=== PATIENT | female | born 1960 | race Caucasian/White ===

== ENCOUNTER 2020-10-04 06:58 | Outpatient (REF) | payer BC, SELFPAY ==
[2020-10-04 11:59] LABS: Alanine Aminotransferase 22 U/L (0-31); Albumin Level 3.9 g/dL (3.5-5.0); Alkaline Phosphatase 72 U/L (39-117); Anion Gap 12 (12-20); Aspartate Amino Transferase 15 U/L (5-31); Bilirubin Total 0.5 mg/dL (0.0-1.0); Blood Urea Nitrogen 18 mg/dL (9-16); Calcium 9.1 mg/dL (8.4-10.2); Carbon Dioxide 27 mmol/L (22-29); Chloride 106 mmol/L (96-108); Cholesterol 209 mg/dL; Estimated Glomerular Filt Rate > 60; Glucose Fasting 86 mg/dL (60-99); HDL Cholesterol 55 mg/dL; LDL Cholesterol Calculated 134 mg/dl; Potassium 4.2 mmol/L (3.3-5.1); Sodium 141 mmol/L (135-145); Triglycerides 103 mg/dL
[2020-10-04 12:05] LABS: Ferritin 56 ng/mL (10-250); TSH reflex Free T4 1.69 uIU/mL (0.32-4.0); Vitamin D 25-OH Total 32.1 ng/mL (>30)
== END 2020-10-04 06:59 | disposition home or self-care (01) ==
LOC: HO.HMGCLDS 06:58
PROVIDERS: PCP Nurse Practitioner Family; Visit Provider Nurse Practitioner Family
DX: Z00.00 Encounter for general adult medical examination without abnormal findings (principal); G25.81 Restless legs syndrome; Z78.0 Asymptomatic menopausal state
CPT/HCPCS: 36415; 80053; 80061; 82306; 82728; 84443

== ENCOUNTER → 2020-10-19 08:22 | Outpatient (BNVA) | payer BC, SELFPAY | PROVIDERS: PCP Nurse Practitioner Family; Visit Provider Obstetrics & Gynecology ==

== ENCOUNTER → 2020-10-28 11:07 | Outpatient (REF) | payer BC, SELFPAY | LOC: HO.NUCMED 11:07 | PROVIDERS: PCP Nurse Practitioner Family; Visit Provider Nurse Practitioner Family | DX: Z13.89 Encounter for screening for other disorder (principal) ==

== ENCOUNTER → 2020-10-29 07:47 | Outpatient (REF) | payer BC, SELFPAY ==
--- NOTE | ~2020-10-29 | NM_ITS ---
EXAMINATION: BILIARY TRACT IMAGING STUDY WITH CCK CLINICAL INFORMATION: Right upper quadrant pain.. COMPARISON: No previous biliary scan is available for comparison. Abdominal ultrasound dated 03/19/2017 is available for comparison.. TECHNIQUE: Serial gamma scintillation camera images were obtained over the abdomen for a total observation period of 94 minutes following the intravenous administration of 5.0 mCi Tc-99m Mebrofenin. FINDINGS: There is good concentration of activity in the liver by 5 minutes post injection. Biliary activity is visualized by 15 minutes. The gallbladder is well visualized by 50 minutes. Small bowel is well visualized by 20 minutes. At 72 minutes post radiopharmaceutical injection, a 30-minute infusion of 2.1 micrograms Sincalide was then begun and an additional 32 minutes of images were obtained. There is good emptying of the gallbladder. By the end of the study there is good clearance of activity from the liver and visualization of diffuse small bowel activity. The calculated gallbladder ejection fraction is 83% (normal gallbladder ejection fraction is greater than 35%). NM/NM hepatobiliary w pharm IMPRESSION: Visualization of the gallbladder is evidence of a patent cystic duct and strong evidence against the diagnosis of acute cholecystitis. The common bile duct is patent. Gallbladder emptying and ejection fraction are normal. Liver function appears normal.
== END ==
LOC: HO.NUCMED 07:47
PROVIDERS: Visit Provider Orthopaedic Surgery
DX: R10.11 Right upper quadrant pain (principal); R19.8 Other specified symptoms and signs involving the digestive system and abdomen
CPT/HCPCS: 78227; A9537; J2805

== ENCOUNTER 2021-01-03 09:24 | Outpatient (REF) | payer BC, SELFPAY | END 2021-01-03 09:25 | disposition home or self-care (01) | LOC: HO.LAB 09:24 | PROVIDERS: Visit Provider Nurse Practitioner Family | DX: J02.9 Acute pharyngitis, unspecified (principal); Z20.822 Contact with and (suspected) exposure to COVID-19 | CPT/HCPCS: U0003; U0005 ==

== ENCOUNTER 2021-01-21 11:26 | Outpatient (REF) | payer BC, SELFPAY ==
--- NOTE | ~2021-01-21 | MM_ITS ---
EXAMINATION: MM SCREENING DIGITAL BREAST TOMOSYNTHESIS, BILATERAL CLINICAL INFORMATION: Screening. Asymptomatic. The lifetime risk of breast cancer based on the Tyrer-Cuzick Model is 9%. COMPARISON: Mammography: 12/03/2019, 11/27/2018, 09/28/2017, 07/27/2016 TECHNIQUE: Digital breast tomosynthesis is performed in both the craniocaudal and mediolateral oblique views along with computer-aided detection (CAD). Synthesized 2D images are generated from the tomosynthesis. Additional left MLO view is provided. FINDINGS: There are scattered areas of fibroglandular density (ACR BI-RADS breast composition Category b). Parenchymal pattern is similar to prior studies. There is no developing density or interval mass or architectural abnormality. There is stable asymmetry mid medial left breast on CC view similar to prior exams. There are no abnormal calcifications. The axilla and skin contours are unremarkable. MM/MM tomosynthesis screening BI IMPRESSION: No mammographic evidence of malignancy. ASSESSMENT: BI-RADS 2: Benign RECOMMENDATION: Routine annual mammography screening. This patient's information was entered into a reminder system with a target due date for their next mammogram.
== END 2021-01-21 11:27 | disposition home or self-care (01) ==
LOC: HO.MAMMO 11:26
PROVIDERS: Visit Provider Nurse Practitioner Family
DX: Z12.31 Encounter for screening mammogram for malignant neoplasm of breast (principal)
CPT/HCPCS: 77063; 77067

== ENCOUNTER 2021-02-14 10:14 | Outpatient (REF) | payer BC, SELFPAY ==
[2021-02-21 14:21] LABS: TS Negative Control Passed; TS Panel A 0; TS Panel B 0; TS Positive Control Passed; TSpotTB Negative (SeeBelow)
== END 2021-02-14 10:15 | disposition home or self-care (01) ==
LOC: HO.HMGCLDS 10:14
PROVIDERS: PCP Nurse Practitioner Family; Visit Provider Nurse Practitioner Family
DX: Z11.1 Encounter for screening for respiratory tuberculosis (principal)
CPT/HCPCS: 36415; 86481

== ENCOUNTER 2021-05-09 07:59 | Outpatient (REF) | payer BC, SELFPAY ==
--- NOTE | ~2021-05-09 | XR_ITS ---
EXAMINATION: XR HIP, RIGHT CLINICAL INFORMATION: M25.551 - Pain in right hip COMPARISON: None TECHNIQUE: Two views of the right hip. FINDINGS: There is no fracture or dislocation. Borderline joint narrowing is present superior lateral right hip joint without erosive change or definite chondrocalcinosis. There is no destructive process. A benign oval calcification is present adjacent to the right greater trochanter measuring 0.5 x 1.1 cm most likely related to calcific tendinosis, possibly mammography piriformis insertion. There is mild benign whiskering at the iliac crest and mild osteitis pubis. Right SI joint shows no erosive change or ankylosis. There are degenerative changes lower lumbar spine. XR/XR hip RT min 2V IMPRESSION: 1. Degenerative changes lower lumbar spine. Osteitis pubis. 2. Mild joint narrowing superolateral hip joint. Calcific tendinosis adjacent to greater trochanter.
--- NOTE | ~2021-05-09 | XR_ITS ---
EXAMINATION: XR KNEE, LEFT CLINICAL INFORMATION: M25.562 - Pain in left knee COMPARISON: None TECHNIQUE: Four views of the left knee. FINDINGS: There is no fracture or dislocation. There is spurring at the quadriceps insertion patella and at the origin of the patellar tendon. Small suprapatellar effusion is suggested. There is mild degenerative marginal spurring. There is no significant joint narrowing and no erosive change or chondrocalcinosis. No fracture or dislocation or destructive process. Bony mineralization appears normal. XR/XR knee LT 4V IMPRESSION: 1. Small suprapatellar effusion. 2. Spurring quadriceps insertion patella and origin patellar tendon.
== END 2021-05-09 08:00 | disposition home or self-care (01) ==
LOC: HO.LAB 07:59
PROVIDERS: PCP Nurse Practitioner Family; Visit Provider Internal Medicine
DX: M25.551 Pain in right hip (principal); M25.562 Pain in left knee; Z20.822 Contact with and (suspected) exposure to COVID-19
CPT/HCPCS: 73502; 73564; C9803; U0003; U0005

== ENCOUNTER 2021-05-09 08:02 | Outpatient (REF) | payer BC, SELFPAY | END 2021-05-09 08:03 | disposition home or self-care (01) | LOC: HO.HMGCX 08:02 | PROVIDERS: PCP Nurse Practitioner Family; Visit Provider Nurse Practitioner Family | DX: Z13.89 Encounter for screening for other disorder (principal) ==

== ENCOUNTER 2021-05-19 08:48 | Outpatient (REF) | payer BC, SELFPAY ==
--- NOTE | ~2021-05-19 | MM_ITS ---
EXAMINATION: BONE DENSITOMETRY CLINICAL INDICATION: Other specified disorders of bone density and structure. COMPARISON: Baseline BD dated 03/13/2017. TECHNIQUE: Using a Ordoro DXA System (software version: 13.1) manufactured by [email or web address], dual-energy x-ray absorptiometry was performed of the lumbar spine and left hip. The images are of good technical quality. Summary results are attached. FINDINGS: AP SPINE L1-L4: Current: BMD 1.241 g/cm2, Z-score 0.9, T-score 0.5, normal, 5.8% decrease from baseline (<5% change is not significant). Baseline: BMD 1.317 g/cm2. LEFT FEMUR, NECK: Current: BMD 0.852 g/cm2, Z-score -0.7, T-score -1.3, osteopenia. Baseline: BMD 0.892 g/cm2. LEFT FEMUR, TOTAL: Current: BMD 0.956 g/cm2, Z-score -0.1, T-score -0.4, normal, 1.7% increase from baseline (<5% change is not significant). Baseline: BMD 0.940 g/cm2. IDENTIFIED RISK FACTORS: Anticonvulsant, menopause. HISTORY OF FRACTURE: None listed. MEDICATIONS: Calcium supplements or multivitamin, vitamin D. MM/XR DEXA axial skeleton IMPRESSION: 1. DIAGNOSIS: Osteopenia based on the lowest T-score value of -1.3 in the femoral neck applying World Health Organization criteria. 2. 10-YEAR FRACTURE RISK PREDICTION, FRAX: Major osteoporotic fracture (clinical spine, forearm, hip or shoulder) 7.7%. Hip fracture 0.6%. 3. Treatment Recommendations: NOF guidelines recommend consideration for treatment in postmenopausal women and men age 50 and older presenting with the following: -A hip or vertebral (clinical or morphometric) fracture. -T-score less than or equal to -2.5 at the femoral neck or spine after appropriate evaluation to exclude secondary causes. -Low bone mass at the hip or spine and a 10-year fracture probability by FRAX of greater than or equal to 3% for hip fracture or greater than or equal to 20% for major osteoporotic fracture based on the [place] adapted WHO algorithm. 4. Other Recommendations: All treatment decisions require clinical judgment and consideration of individual patient factors, including patient preferences, comorbidities, previous drug use, risk factors not captured in the FRAX model (e.g. frailty, falls, vitamin D deficiency, increased bone turnover, interval significant decline in bone density) and possible under or overestimation of fracture risk by FRAX. Additional medical evaluation for secondary cause of low bone mineral density may be appropriate. FUTURE SCAN RECOMMENDATION: People with diagnosed cases of osteoporosis or at high risk for fracture should have regular bone mineral density tests. For patients eligible for Medicare, routine testing is allowed once every 2 years. The testing frequency can be increased to one year for patients who have rapidly progressing disease, those who are receiving or discontinuing medical therapy to restore bone mass, or have additional risk factors.
== END 2021-05-19 08:49 | disposition home or self-care (01) ==
LOC: HO.MAMMO 08:48
PROVIDERS: PCP Nurse Practitioner Family; Visit Provider Nurse Practitioner Family
DX: Z13.820 Encounter for screening for osteoporosis (principal); M85.80 Other specified disorders of bone density and structure, unspecified site; Z78.0 Asymptomatic menopausal state; Z79.899 Other long term (current) drug therapy
CPT/HCPCS: 77080

== ENCOUNTER 2021-07-08 09:36 | Outpatient (REF) | payer BC, SELFPAY ==
--- NOTE | ~2021-07-08 | MR_ITS ---
EXAMINATION: MRI OF THE BRAIN WITHOUT CONTRAST. CLINICAL INFORMATION: 61-year-old with tremor. COMPARISON: None. TECHNIQUE: Multiplanar multisequence MR imaging of the brain was done without IV contrast. FINDINGS: Brain Volume: Within normal limits. Structural: No malformations. Brain and Meninges: DWI sequence demonstrates no restricted diffusion. Specifically, there is no evidence for acute or subacute cerebral ischemia. Scattered small patchy and punctate foci of FLAIR/T2 signal hyperintensity are noted within the subcortical and deeper white matter of both cerebral hemispheres which are nonspecific findings. There is no evidence for hemorrhage, hemosiderin staining or abnormal mineral deposition. No extra-axial fluid collections, space-occupying process or mass effect. Brainstem is normal in morphology with no significant volume loss. Ganglionic structures appear normal. Ventricles and Subarachnoid Spaces: Ventricular system and subarachnoid spaces are within normal limits without hydrocephalus. Orbital Structures: The visualized orbital structures are grossly unremarkable within the limitations of the study. Vascular: Signal voids are noted in the visualized major intracranial vessels. Sinuses and Osseous Structures: Nasal septal deviation to the right is noted. Suspect left-sided TMJ arthropathy. Otherwise, the bony structures appear grossly intact. MR/MR head/brain wo con IMPRESSION: 1. Scattered nonspecific white matter T2 hyperintensities in the cerebral hemispheres as described above. Differential diagnostic considerations include chronic ischemic microangiopathy as the main consideration. Other etiologies such as demyelination are considered less likely. 2. No evidence for hemorrhage, infarction, extra-axial fluid collection, space-occupying process, mass effect or hydrocephalus. 3. Suspect left-sided TMJ arthropathy.
== END 2021-07-08 09:37 | disposition home or self-care (01) ==
LOC: HO.MRI 09:36
PROVIDERS: Visit Provider Psychiatry & Neurology Neurology
DX: R25.1 Tremor, unspecified (principal)
CPT/HCPCS: 70551

== ENCOUNTER 2021-09-02 07:58 | Outpatient (REF) | payer BC, SELFPAY ==
[2021-09-02 09:15] LABS: Hematocrit 40.8 % (37.0-47.0); Hemoglobin 13.7 g/dl (12.0-16.0); Mean Corpuscular HGB Conc 33.6 g/dl (31.0-35.0); Mean Corpuscular Hemoglobin 32.5 pg (27.0-33.0); Mean Corpuscular Volume 96.9 fL (80.0-98.0); Mean Platelet Volume 10.2 fL (9.4-12.3); Platelet Count 233 X10*3/uL (160-400); Red Blood Count 4.21 X10*6/uL (4.20-5.50); Red Cell Distribution Width 14.3 % (11.0-16.0); White Blood Count 7.5 X10*3/uL (4.8-10.8)
[2021-09-02 09:38] LABS: Alanine Aminotransferase 29 U/L (0-31); Albumin Level 3.8 g/dL (3.5-5.0); Alkaline Phosphatase 67 U/L (39-117); Anion Gap 10 (12-20); Aspartate Amino Transferase 18 U/L (5-31); Bilirubin Direct 0.2 mg/dL (0.0-0.5); Bilirubin Total 0.5 mg/dL (0.0-1.0); Blood Urea Nitrogen 17 mg/dL (9-16); Calcium 9.6 mg/dL (8.4-10.2); Carbon Dioxide 28 mmol/L (22-29); Chloride 104 mmol/L (96-108); Estimated Glomerular Filt Rate > 60; Glucose Fasting 89 mg/dL (60-99); Potassium 4.1 mmol/L (3.3-5.1); Sodium 138 mmol/L (135-145); Total Protein 6.9 g/dL (6.5-8.0)
[2021-09-02 09:56] LABS: Syphilis Screen Nonreactive (Nonreactive)
[2021-09-02 10:07] LABS: Erythrocyte Sedimentation Rate 19 MM/HR (0-20)
[2021-09-03 13:27] LABS: Cardiolipin IgG Ab <2.0 GPL-U/mL; Cardiolipin IgM Ab <2.0 MPL-U/mL
[2021-09-04 05:26] LABS: Lyme Abs Screen <0.90 index
[2021-09-05 14:22] LABS: PTT (LAC) Screen 32 sec (< OR = 40)
[2021-09-06 07:36] LABS: Anti Nuclear Antibody Screen NEGATIVE (NEGATIVE)
== END 2021-09-02 07:59 | disposition home or self-care (01) ==
LOC: HO.HMGCLDS 07:58
PROVIDERS: PCP Nurse Practitioner Family; Visit Provider Psychiatry & Neurology Neurology
DX: G93.49 Other encephalopathy (principal)
CPT/HCPCS: 36415; 80048; 80076; 85027; 85597; 85613; 85652; 85730; 86038; 86039; 86147; 86617; 86618; 86780

== ENCOUNTER 2021-10-11 07:56 | Outpatient (REF) | payer BC, SELFPAY ==
[2021-10-11 11:33] LABS: Basophils Absolute Auto 0.1 X10*3/uL (0.0-0.2); Basophils Percent Auto 0.7 % (0-2); Eosinophils Absolute Auto 0.3 X10*3/uL (0.0-0.4); Eosinophils Percent Auto 3.6 % (0-4); Hematocrit 43.9 % (37.0-47.0); Hemoglobin 14.3 g/dl (12.0-16.0); Imm Gran Abs Auto 0.04 X10*3/uL (0.00-0.03); Imm Gran Pct Auto 0.6 % (0.0-0.4); Lymphocytes Absolute Auto 1.5 X10*3/uL (1.2-4.9); Lymphocytes Percent Auto 21.8 % (20-40); MANUAL DIFF FLAG NO; Mean Corpuscular HGB Conc 32.6 g/dl (31.0-35.0); Mean Corpuscular Hemoglobin 31.4 pg (27.0-33.0); Mean Corpuscular Volume 96.5 fL (80.0-98.0); Mean Platelet Volume 10.3 fL (9.4-12.3); Monocytes Absolute Auto 0.6 X10*3/uL (0.1-1.2); Monocytes Percent Auto 7.9 % (2-11); Neutrophils Absolute Auto 4.6 x10*3/uL (2.0-8.3); Neutrophils Percent Auto 65.4 % (45-73); Platelet Count 281 X10*3/uL (160-400); Red Blood Count 4.55 X10*6/uL (4.20-5.50); Red Cell Distribution Width 13.7 % (11.0-16.0)
[2021-10-11 11:35] LABS: Appearance Urine CLEAR; Color Urine YELLOW; Glucose Urine UA NEG (NEG); Leukocyte Esterase Urine TRACE (NEG); Nitrite Urine NEG (NEG); PH 5.5 (5.0-8.0); Specific Gravity - Urine 1.025 (1.005-1.025); Urine Blood NEG (NEG); Urine Ketones NEG (NEG); Urine Protein NEG (NEG-TRACE)
[2021-10-11 12:11] LABS: Alanine Aminotransferase 27 U/L (0-31); Albumin Level 3.8 g/dL (3.5-5.0); Alkaline Phosphatase 65 U/L (39-117); Anion Gap 14 (12-20); Aspartate Amino Transferase 21 U/L (5-31); Bilirubin Total 0.2 mg/dL (0.0-1.0); Blood Urea Nitrogen 18 mg/dL (9-16); Calcium 9.6 mg/dL (8.4-10.2); Carbon Dioxide 25 mmol/L (22-29); Chloride 105 mmol/L (96-108); Cholesterol 228 mg/dL; Estimated Glomerular Filt Rate 58; Glucose Fasting 90 mg/dL (60-99); HDL Cholesterol 59 mg/dL; LDL Cholesterol Calculated 153 mg/dl; Potassium 4.5 mmol/L (3.3-5.1); Sodium 139 mmol/L (135-145); Triglycerides 84 mg/dL
[2021-10-11 12:15] LABS: Squamous Epithelial Cell Urine 1+ /LPF
[2021-10-11 12:16] LABS: Bacteria Urine TRACE /LPF; Renal Epithelial Cells Urine TRACE /LPF
[2021-10-11 12:17] LABS: RBC Urine 0 /HPF (0)
[2021-10-11 12:25] LABS: Vitamin D 25-OH Total 34.3 ng/mL (>30)
== END 2021-10-11 07:57 | disposition home or self-care (01) ==
LOC: HO.HMGCLDS 07:56
PROVIDERS: PCP Nurse Practitioner Family; Visit Provider Nurse Practitioner Family
DX: Z00.00 Encounter for general adult medical examination without abnormal findings (principal); Z78.0 Asymptomatic menopausal state
CPT/HCPCS: 36415; 80053; 80061; 81001; 82306; 84443; 85025

== ENCOUNTER 2021-11-10 07:21 | Outpatient (REF) | payer BC, SELFPAY ==
--- NOTE | ~2021-11-10 | XR_ITS ---
EXAMINATION: XR KNEE AP STANDING CLINICAL INFORMATION: Pain COMPARISON: Previous left knee x-ray May 2021 TECHNIQUE: AP bilateral standing view of both knees and sunrise view of the left knee was obtained. FINDINGS: Left knee: Bone alignment is normal. The joint spaces are normal. Visualized soft tissues are normal. Standing AP view of the right knee demonstrates a small soft tissue calcification or well-corticated ossification adjacent to the fibular head. XR/XR knee LT 1V IMPRESSION: Unremarkable two-view left knee exam.
--- NOTE | ~2021-11-10 | XR_ITS ---
EXAMINATION: XR KNEE AP STANDING CLINICAL INFORMATION: Pain COMPARISON: Previous left knee x-ray May 2021 TECHNIQUE: AP bilateral standing view of both knees and sunrise view of the left knee was obtained. FINDINGS: Left knee: Bone alignment is normal. The joint spaces are normal. Visualized soft tissues are normal. Standing AP view of the right knee demonstrates a small soft tissue calcification or well-corticated ossification adjacent to the fibular head. XR/XR knee standing BI IMPRESSION: Unremarkable two-view left knee exam.
== END 2021-11-10 07:22 | disposition home or self-care (01) ==
LOC: HO.HOSX 07:21
PROVIDERS: Visit Provider Physician Assistant
DX: M25.562 Pain in left knee (principal); M25.561 Pain in right knee
CPT/HCPCS: 73560; 73565

== ENCOUNTER 2021-12-16 10:00 | Outpatient (RCR) | payer BC, SELFPAY ==
--- NOTE | 2021-11-03 15:16 | MHC.PT.EP ---
[facility] [place] Office [place] Office [place] Office [address] [phone] F: [phone] F: [phone] F: [phone] F: [phone] Physical Therapy Plan of Care Date of Evaluation: Date of Surgery: Diagnosis: L knee pain Assessment: Patient is a 61 year old R handed female who presents with s/s consistent with L knee pain. 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 Patient past medical history includes sleep apnea, osteopenia noted in L femoral neck. Current impairments include pain, posture, flexibility, ROM, strength, activity tolerance and functional mobility. Functional limitations include decreased ability to . Patient is motivated with good rehab potential. Skilled PT will address impairments and functional limitations in order to achieve goals. Frequency and Duration: The patient will be seen 2x/week for 5 weeks Short Term Goals: I with HEP- 2 weeks AROM 0-130 - 3 weeks HS and gastroc min tightness - 3 weeks Burglar Alarm Inspector Goals: Able to walk 30 minutes, negotiate 3 flights of stairs pain free - 5 weeks LEFS 58/80 - 5 weeks STrength 4+/5 grossly - 5 weeks Treatment Plan: Modalities to reduce pain, spasms and effusion. Manual therapy to restore motion and function. Therapeutic exercise to improve strength and flexibility. Neuromuscular re-education for posture and balance. Therapeutic activities to return to functional activities of daily living. Electronically signed by: Thom Ferreira, PT Please sign and return to therapist. Thank you for your referral.
--- NOTE | 2022-01-09 10:33 | MHC.PT.DC ---
[facility] [place] Office [place] Office [place] Office [address] Mendoza [address] [phone] F: [phone] F: [phone] F: [phone] F: [phone] Physical Therapy Discharge Report Diagnosis: L knee pain Date of Surgery: Date of Evaluation: 11/03/21 Date of Discharge: 12/20/21 Treatments to Date: 11 Cancellations to Date: No Shows to Date: Discharge Status: Improved Function Independent with HEP Discharge Summary: Pt progressed very well in towards goals. She has less pain, more strength and improved ability to perform functional activities. d/c to HEP at this time. Electronically signed by: Thom Ferreira PT Please sign and return to therapist. Thank you for your referral.
== END 2022-01-09 10:34 | disposition home or self-care (01) ==
LOC: HO.PTCHIC 10:00
PROVIDERS: PCP Nurse Practitioner Family; Visit Provider Nurse Practitioner Family
DX: M25.562 Pain in left knee (principal)
CPT/HCPCS: 97110; 97140; 97162; 97530

== ENCOUNTER 2021-12-22 08:44 | Outpatient (REF) | payer BC, SELFPAY ==
[2021-12-28 14:37] LABS: HPV mRNA E6/E7 rflx Not Detected (Not Detected)
== END 2021-12-22 08:45 | disposition home or self-care (01) ==
LOC: HO.LAB 08:44
PROVIDERS: Visit Provider Advanced Practice Midwife
DX: Z01.419 Encounter for gynecological examination (general) (routine) without abnormal findings (principal); Z11.51 Encounter for screening for human papillomavirus (HPV)
CPT/HCPCS: 87624; 88142

== ENCOUNTER 2021-12-26 13:13 | Outpatient (REF) | payer BC, SELFPAY ==
[2021-12-27 05:03] LABS: Lyme Abs Screen <0.90 index
[2021-12-30 01:56] LABS: A. Phagocytphilium DNA,RT-PCR NOT DETECTED (NOT DETECTED); Babesia Microti DNA, RT-PCR NOT DETECTED (NOT DETECTED); Borrelia Miyamotoi,DNA RT-PCR NOT DETECTED (NOT DETECTED); E.Chaffeensis DNA RT-PCR NOT DETECTED (NOT DETECTED); Lyme(Borrelia ssp)DNA RT-PCR NOT DETECTED (NOT DETECTED)
[2021-12-31 07:51] LABS: Source-Tick borne disease BLOOD
== END 2021-12-26 13:14 | disposition home or self-care (01) ==
LOC: HO.HMGCLDS 13:13
PROVIDERS: Visit Provider Physician Assistant
DX: L24.7 Irritant contact dermatitis due to plants, except food (principal)
CPT/HCPCS: 36415; 86617; 86618; 87798; 87801

== ENCOUNTER 2021-12-28 10:32 | Outpatient (REF) | payer BC, SELFPAY ==
[2021-12-28 13:37] LABS: Appearance Urine HAZY; Color Urine YELLOW; Glucose Urine UA NEG (NEG); Leukocyte Esterase Urine NEG (NEG); Nitrite Urine NEG (NEG); Urine Blood NEG (NEG); Urine Ketones NEG (NEG); Urine Protein NEG (NEG-TRACE)
[2021-12-28 13:53] LABS: Cholesterol 159 mg/dL; HDL Cholesterol 57 mg/dL; LDL Cholesterol Calculated 89 mg/dl; Triglycerides 65 mg/dL
== END 2021-12-28 10:33 | disposition home or self-care (01) ==
LOC: HO.HMGCLDS 10:32
PROVIDERS: PCP Nurse Practitioner Family; Visit Provider Nurse Practitioner Family
DX: Z00.00 Encounter for general adult medical examination without abnormal findings (principal); E78.5 Hyperlipidemia, unspecified
CPT/HCPCS: 36415; 80061; 81003

== ENCOUNTER 2022-01-24 08:53 | Outpatient (REF) | payer BC, SELFPAY ==
--- NOTE | ~2022-01-24 | MM_ITS ---
EXAMINATION: MM SCREENING DIGITAL BREAST TOMOSYNTHESIS, BILATERAL CLINICAL INFORMATION: Screening. Asymptomatic. The lifetime risk of breast cancer based on the Tyrer-Cuzick Model is 8%. COMPARISON: Mammography: January 21, 2021 and studies dating back to February 23, 2012 TECHNIQUE: Digital breast tomosynthesis is performed in both the craniocaudal and mediolateral oblique views along with computer-aided detection (CAD). Synthesized 2D images are generated from the tomosynthesis. FINDINGS: There are scattered areas of fibroglandular density (ACR BI-RADS breast composition Category b). There are no significant masses, abnormal calcifications, or other abnormalities. MM/MM tomosynthesis screening BI IMPRESSION: No significant changes ASSESSMENT: BI-RADS 1: Negative RECOMMENDATION: Routine annual mammography screening. This patient's information was entered into a reminder system with a target due date for their next mammogram.
== END 2022-01-24 08:54 | disposition home or self-care (01) ==
LOC: HO.MAMMO 08:53
PROVIDERS: Visit Provider Nurse Practitioner Family
DX: Z12.31 Encounter for screening mammogram for malignant neoplasm of breast (principal)
CPT/HCPCS: 77063; 77067

== ENCOUNTER 2022-04-24 08:31 | Outpatient (REF) | payer BC, SELFPAY ==
[2022-04-24 12:20] LABS: Alanine Aminotransferase 24 U/L (0-31); Albumin Level 3.9 g/dL (3.5-5.0); Alkaline Phosphatase 67 U/L (39-117); Anion Gap 11 (12-20); Aspartate Amino Transferase 19 U/L (5-31); Bilirubin Total 0.5 mg/dL (0.0-1.0); Blood Urea Nitrogen 13 mg/dL (9-16); Calcium 9.6 mg/dL (8.4-10.2); Carbon Dioxide 28 mmol/L (22-29); Chloride 105 mmol/L (96-108); Cholesterol 155 mg/dL; Estimated Glomerular Filt Rate > 60; Glucose Fasting 93 mg/dL (60-99); HDL Cholesterol 53 mg/dL; LDL Cholesterol Calculated 86 mg/dl; Potassium 4.1 mmol/L (3.3-5.1); Sodium 140 mmol/L (135-145); Total Protein 7.1 g/dL (6.5-8.0); Triglycerides 82 mg/dL
== END 2022-04-24 08:32 | disposition home or self-care (01) ==
LOC: HO.HMGCLDS 08:31
PROVIDERS: PCP Nurse Practitioner Family; Visit Provider Nurse Practitioner Family
DX: E78.5 Hyperlipidemia, unspecified (principal)
CPT/HCPCS: 36415; 80053; 80061

== ENCOUNTER 2022-06-01 13:53 | Outpatient (REF) | payer BC, SELFPAY ==
[2022-06-01 14:44] LABS: Influenza A PCR NEGATIVE (Negative); Influenza B PCR NEGATIVE (Negative); Resp Syncy Virus RNA Qual PCR NEGATIVE (Negative); SARS COV2 PCR INHOUSE NEGATIVE (Negative)
== END 2022-06-01 13:54 | disposition home or self-care (01) ==
LOC: HO.LNP 13:53
PROVIDERS: Visit Provider Nurse Practitioner Family
DX: Z20.822 Contact with and (suspected) exposure to COVID-19 (principal); R09.89 Other specified symptoms and signs involving the circulatory and respiratory systems
CPT/HCPCS: 0241U

== ENCOUNTER 2022-10-17 08:19 | Outpatient (REF) | payer BC, SELFPAY ==
[2022-10-17 11:12] LABS: MANUAL DIFF FLAG NO
[2022-10-17 11:25] LABS: Appearance Urine Clear; Color Urine Yellow; Glucose Urine UA Negative (Negative); Leukocyte Esterase Urine Small (1+) (Negative); Nitrite Urine Negative (Negative); Specific Gravity - Urine 1.015 (1.005-1.025); UMIC TRIGGER UACC YES; Urine Blood Negative (Negative); Urine Ketones Negative (Negative); Urine Protein Negative (Neg-Trace)
[2022-10-17 11:41] LABS: Basophils Absolute Auto 0.1 X10*3/uL (0.0-0.2); Basophils Percent Auto 1.1 % (0-2); Eosinophils Absolute Auto 0.3 X10*3/uL (0.0-0.4); Eosinophils Percent Auto 3.8 % (0-4); Hematocrit 43.3 % (37.0-47.0); Imm Gran Abs Auto 0.02 X10*3/uL (0.00-0.03); Imm Gran Pct Auto 0.3 % (0.0-0.4); Lymphocytes Absolute Auto 1.8 X10*3/uL (1.2-4.9); Lymphocytes Percent Auto 24.2 % (20-40); Mean Corpuscular HGB Conc 32.3 g/dl (31.0-35.0); Mean Corpuscular Hemoglobin 30.4 pg (27.0-33.0); Mean Corpuscular Volume 94.1 fL (80.0-98.0); Mean Platelet Volume 10.6 fL (9.4-12.3); Monocytes Absolute Auto 0.7 X10*3/uL (0.1-1.2); Monocytes Percent Auto 9.1 % (2-11); Neutrophils Absolute Auto 4.5 x10*3/uL (2.0-8.3); Neutrophils Percent Auto 61.5 % (45-73); Platelet Count 258 X10*3/uL (160-400); Red Cell Distribution Width 14.5 % (11.0-16.0); White Blood Count 7.3 X10*3/uL (4.8-10.8)
[2022-10-17 11:44] LABS: Bacteria Urine None Seen (None Seen); Hyaline Casts Urine 0-2 /LPF (0-2); RBC Urine 0-2 /HPF (0-2); UACC Culture Trigger YES; WBC Urine 0-5 /HPF (0-5)
[2022-10-17 12:10] LABS: Alanine Aminotransferase 30 U/L (0-31); Albumin Level 3.8 g/dL (3.5-5.0); Alkaline Phosphatase 70 U/L (39-117); Anion Gap 12 (12-20); Aspartate Amino Transferase 23 U/L (5-31); Bilirubin Total 0.7 mg/dL (0.0-1.0); Blood Urea Nitrogen 16 mg/dL (9-16); Calcium 9.2 mg/dL (8.4-10.2); Carbon Dioxide 27 mmol/L (22-29); Chloride 105 mmol/L (96-108); Cholesterol 152 mg/dL; Estimated Glomerular Filt Rate > 60; Glucose Fasting 89 mg/dL (60-99); HDL Cholesterol 58 mg/dL; LDL Cholesterol Calculated 77 mg/dl; Potassium 4.2 mmol/L (3.3-5.1); Sodium 140 mmol/L (135-145); TSH reflex Free T4 2.81 uIU/mL (0.32-4.0); Total Protein 6.7 g/dL (6.5-8.0); Triglycerides 89 mg/dL; Vitamin D 25-OH Total 34.7 ng/mL (>30)
== END 2022-10-17 08:20 | disposition home or self-care (01) ==
LOC: HO.HMGCLDS 08:19
PROVIDERS: PCP Nurse Practitioner Family; Visit Provider Nurse Practitioner Family
DX: Z00.00 Encounter for general adult medical examination without abnormal findings (principal); E55.9 Vitamin D deficiency, unspecified; R82.90 Unspecified abnormal findings in urine; E78.5 Hyperlipidemia, unspecified; G25.81 Restless legs syndrome
CPT/HCPCS: 36415; 80053; 80061; 81001; 82306; 84443; 85025; 87086; 87147

== ENCOUNTER 2022-12-28 08:54 | Outpatient (AMB) | payer BC, SELFPAY ==
--- NOTE | 2022-12-28 08:58 | A.OFFVIS_ITS ---
Intake Vital Signs 12/28/22 09:02 Height 5 ft 8 in Weight 213 lb BMI 32.4 BP 134/72 Blood Pressure Location Lt brachial Position Sitting Pulse 74 Intake Visit Reasons: Dysphagia Intake Note: Patient new consult for dysphagia. Patient cc: dysphagia, hemorrhoids with constipation. Denies any other GI issues. Dairy Equipment Specialist Required: No Accompanied by: Self / Same As Patient Allergies neomycin Allergy (Unknown, Verified 12/28/22 08:56) Unknown Nickel Allergy (Unknown, Uncoded 10/25/22 08:30) rash, itching Medication List - Last Reconciled 12/28/22 by Lisa aMce PA-C atorvastatin 10 mg PO BEDTIME 90 days diltiazem HCl ER (DILT-XR) 120 mg PO DAILY fluoxetine 40 mg PO QAM gabapentin mg PO BEDTIME lamotrigine 100 mg PO BID omeprazole 40 mg PO DAILY 90 days trazodone 50 mg PO BEDTIME HPI HPI Comments History of Present Illness Details 62-year-old female referred with dysphagia- globus- She has noted pills don't pass easily- she had a hx of severe acid- had cardiac eval- was no finding- began omeprazole 20mgnow increased to omeprazole 40 mg- Recent ED for pressure- she had NSVT- PVC's referred back to cardiology- seeing them in end January- after holter monitor- P- and M side colon cancer- Last colonoscopy- 2018- Dr. Davies- no adenoma- Appetite is good- Bowels- a bit slow- no blood no belly pain- fever/chills PFSH Medical History (Updated 12/28/22 @ 09:55 by Lisa Mace PA-C) Anxiety Depression Lyme disease FERNANDO (obstructive sleep apnea) Plantar fasciitis Vitamin D deficiency Surgical History History of suburethral sling procedure Hx of appendectomy Hx of colonoscopy Family History (Updated 12/28/22 @ 09:34 by Lisa Mace PA-C) Maternal Aunt Colon cancer Paternal Grandfather Colon cancer Family/Other Colon cancer Brother Substance use disorder Mental health disorder Sister Mental health disorder Mother Mental health disorder History of Almeida's esophagus Social History Housing: House Alcohol intake: current Patient Tobacco Use Status: Former Tobacco user Years Smoked: 1 year e-Cigarette/Vaping Use: Never Used Second Hand Smoke Exposure: Yes Current occupational status: unemployed and retired Gender identity: Female Cognitive needs: No Hearing needs: No Vision needs: No Female Reproductive History Menstrual Age of Menarche: 14 Review of Systems Const All systems reviewed & are unremarkable except as noted in HPI and below ENT Reports dysphagia Card Denies chest pain and Denies dyspnea Resp Denies dyspnea GI Denies abdominal pain, Reports constipation and Reports dysphagia Psych Reports anxiety, Reports depression, Denies homicidal ideation and Denies suicidal ideation Physical Exam Vital Signs: Last Vital Signs Pulse 74 12/28/22 09:02 BP 134/72 12/28/22 09:02 BMI result Body Mass Index 32.4 Const General: cooperative, healthy appearing, comfortable and no acute distress Orientation/consciousness: patient oriented x3 Limitations: no limitations Eyes Sclerae: sclerae normal Resp Effort & Inspection: normal respiratory effort and able to speak in complete sentences Auscultation: clear to auscultation bilaterally Neuro General: patient oriented x3 Extrem General: Yes full ROM Psych Appearance: grossly normal and well kempt Mental Status: mental status grossly normal Speech and movement: Normal speech and movement present and Clear speech present Affect: normal affect and Anxious affect present Attitude: cooperative Thought process: Normal thought process present Thought content: Normal thought content present Insight: Good insight present (Psych) Judgement: Good judgement present (Psych) Assessment & Plan Assessment & Plan (1) Dysphagia: Comment: Very pleasant 62-year-old female- Dysphagia/ globus/ anxiety- cardiac work up - follow recommend EGD, however will get Barium until cardiac cleared- Code(s): R13.10 - Dysphagia, unspecified (2) Chronic constipation: Comment: Colonoscopy 2019- no adenoma repeat 5 years due to Fam HX- per Dr. Cash- Code(s): K59.09 - Other constipation Plan: Increase fiber-you supplements if need (3) Acid reflux: Code(s): K21.9 - Gastro-esophageal reflux disease without esophagitis Plan: Reflux precautions, avoid culprits Continue PPI Plan Barium swallow Orders: Orders FL barium swallow Today R13.10 - Dysphagia, unspecified Patient Instructions: Very pleasant 62-year-old female presents with history acid reflux, family history of Almeida's as well as globus/dysphagia-will hold off on EGD until cardiac workup completed unless otherwise indicated Will get barium swallow to assess for stricture, esophagitis, ETC Chew well eat slowly continue ppi reflux precautions HFD F/U cardiology Follow-up after barium swallow Call with any questions or concerns Coding Level of Care Code New Pt Level 4 (12071) Diagnoses Dysphagia R13.10 Chronic constipation K59.09 Acid reflux K21.9 Time Spent (min) 40
[2022-12-28 09:02] VITALS: BP 134/72; PULSE 74; BMI 32.4
== END 2022-12-28 09:46 | disposition home or self-care (01) ==
PROVIDERS: PCP Nurse Practitioner Family; Visit Provider Physician Assistant
DX: R13.10 Dysphagia, unspecified (principal); K59.09 Other constipation; K21.9 Gastro-esophageal reflux disease without esophagitis
CPT/HCPCS: 99203; 99204; 99213

== ENCOUNTER → 2022-12-28 08:54 | Outpatient (BNVA) | payer BC, SELFPAY | PROVIDERS: PCP Nurse Practitioner Family; Visit Provider Physician Assistant ==

== ENCOUNTER 2023-01-30 09:36 | Outpatient (REF) | payer BC, SELFPAY | END 2023-01-30 09:37 | disposition home or self-care (01) | LOC: HO.MAMMO 09:36 | PROVIDERS: PCP Nurse Practitioner Family; Visit Provider Nurse Practitioner Family | DX: Z12.31 Encounter for screening mammogram for malignant neoplasm of breast (principal) | CPT/HCPCS: 77063; 77067 ==

== ENCOUNTER → 2023-01-30 09:45 | Outpatient (BNV) | payer BC, SELFPAY | PROVIDERS: PCP Nurse Practitioner Family; Visit Provider Radiology Diagnostic Radiology | DX: Z12.31 Encounter for screening mammogram for malignant neoplasm of breast (principal) | CPT/HCPCS: 77063; 77067 ==

== ENCOUNTER 2023-02-06 08:36 | Outpatient (REF) | payer BC, SELFPAY ==
--- NOTE | ~2023-02-06 | FL_ITS ---
EXAMINATION: XR FLUOROSCOPY BARIUM SWALLOW WITH AIR CLINICAL INFORMATION: Heartburn, dysphagia unspecified. COMPARISON: None TECHNIQUE: Fluoroscopic air contrast barium swallow examination was performed utilizing standard techniques with thin and thick barium and effervescent granules. Numerous spot images were obtained. FINDINGS: Lateral cine images of the oropharynx and hypopharynx demonstrate normal swallow mechanism with normal epiglottic inversion and soft palate elevation. No tracheal penetration, glottic or subglottic aspiration identified. No nasopharyngeal reflux present. Hypopharyngeal structures appear normal without evidence of mass or diverticulum. There was no significant cricopharyngeal achalasia. Dual and single contrast images of the esophagus demonstrate normal caliber, contour, and mucosal pattern. No evidence of stricture, mass, or ulcerations identified. Esophageal peristalsis was normal. There was a small type I hiatus hernia at the GE junction. There was significant gastroesophageal reflux noted during the examination to the level of the thoracic inlet. Dual contrast and single contrast images of the stomach demonstrated normal contour and mucosal pattern without evidence of mass, ulceration, or other abnormality. Contrast freely passed into the gastric antrum and duodenal bulb without delay. Single and air-contrast images of the duodenal bulb demonstrate no abnormality. The duodenal sweep has a normal appearance, course, and mucosal fold appearance. The imaged proximal jejunum has a normal fold pattern and caliber. FLUOROSCOPY TIME: 4.0 minutes Number of Spot Images: 47 DOSE AREA PRODUCT: 39.938 uGy-m2 (microgray-meter squared) FL/FL barium swallow with air IMPRESSION: 1. Small type I hiatus hernia. 2. Episodic gastroesophageal reflux noted to the level of the thoracic inlet. 3. Examination otherwise normal.
== END 2023-02-06 08:37 | disposition home or self-care (01) ==
LOC: HO.XRAY 08:36
PROVIDERS: PCP Nurse Practitioner Family; Visit Provider Physician Assistant
DX: R13.10 Dysphagia, unspecified (principal)
CPT/HCPCS: 74221

== ENCOUNTER → 2023-02-06 08:40 | Outpatient (BNV) | payer BC, SELFPAY | PROVIDERS: PCP Nurse Practitioner Family; Visit Provider Radiology Diagnostic Radiology | DX: K21.9 Gastro-esophageal reflux disease without esophagitis (principal); R13.10 Dysphagia, unspecified | CPT/HCPCS: 74221 ==

== ENCOUNTER 2023-02-16 13:50 | Outpatient (AMB) | payer BC, SELFPAY ==
--- NOTE | 2023-02-16 13:52 | MHC.OFFVIS ---
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 Scribed for HAILEY Alegria by Anne Francois medical transcriptionist, on 02/16/2023 at 2:15 pm EST Grain Packer Required: No Information Interpreted: non-clinical & clinical Securities Sales Associate: Securities Sales Associate Present (Dyan Wild GREGORY) Accompanied by: Self / Same As Patient Allergies neomycin Allergy (Unknown, Verified 02/16/23 13:58) Unknown Nickel Allergy (Unknown, Uncoded 02/16/23 13:58) rash, itching Post menopausal: Yes HPI HPI Comments History of Present Illness Details She is a postmenopausal woman presenting for annual exam. Doing well with no director of critical care concerns. She attempts to eat a healthy diet including Calcium and Vitamin D. She tries to stay active with walking occasionally. Occasionally sexually active. Admits to vaginal dryness when intimate. Denies vaginal itching and irritation. STD screening offered; she accepts. Last pap smear 2021. Last mammogram 01/30/23. UTD on colonoscopy. Hx of PVC, was seen at ED 2x, all tests normal. Has seen cardiology, sx have since resolved. Hx of GERD, being followed by GI. [facility] Medical History Plantar fasciitis FERNANDO (obstructive sleep apnea) Vitamin D deficiency Lyme disease Depression Anxiety Surgical History Hx of colonoscopy Hx of appendectomy History of suburethral sling procedure Family History Maternal Aunt Colon cancer Paternal Grandfather Colon cancer Family/Other Colon cancer Brother Substance use disorder Mental health disorder HTN (hypertension) Sister Mental health disorder Mother Mental health disorder History of Almeida's esophagus Father Heart attack CHF (congestive heart failure) Social History Household Members: Spouse Housing: House Alcohol intake: current Patient Tobacco Use Status: Current everyday Tobacco user Cigarettes Per Day: 5 Years Smoked: 1 year e-Cigarette/Vaping Use: Never Used Second Hand Smoke Exposure: Yes Current occupational status: unemployed and retired Sexual orientation: Straight/Heterosexual Gender identity: Female Cognitive needs: No Hearing needs: No Vision needs: No Female Reproductive History Menstrual Age of Menarche: 14 Total pregnancies: 0 Date of last pap smear: 12/23/21 Date of Mammogram: 01/30/23 Review of Systems Const All systems reviewed & are unremarkable except as noted in HPI and below Reports vaginal dryness Physical Exam Vital Signs: Last Vital Signs BP 120/72 02/16/23 13:53 BMI result Body Mass Index 32.4 Const General: cooperative, healthy appearing, no acute distress, well developed and alert Orientation/consciousness: patient oriented x3 HEENT Head: Yes normal to inspection Eyes General: appearance normal, both eyes and all related structures Neck Neck: Yes normal visual inspection Thyroid: Thyroid normal Chest Chest palpation & inspection: normal inspection of the chest Breast/axilla inspection: normal inspection of the breasts (no puckering, dimpling, peau de orange, retraction, discharge, masses) Breast/axilla palpation: normal palpation of the breasts Resp Effort & Inspection: normal respiratory effort GI Inspection: Yes normal to inspection and Yes obesity Palpation (GI): Soft to palpation Rectal Exam - Female: deferred General: Yes bladder normal to palpation External Female Exam: normal external appearance and normal appearance of the urethra Speculum Exam - Vagina: normal appearance of the vagina, normal palpation, normal vaginal discharge and vagina atrophic Speculum Exam - Cervix: normal appearance of the cervix and normal palpation Bimanual exam- vagina & uterus: normal bimanual exam, normal palpation, uterine size normal, bladder normal to palpation and normal palpation Bimanual Exam- Adnexa, other: normal adnexae and no masses Skin General skin exam: no rashes or lesions noted Neuro General: patient oriented x3 Cognition (Neuro): normal cognition Extrem General: Yes normal to inspection Psych Attitude: cooperative Thought process: Normal thought process present Assessment & Plan Assessment & Plan (1) Encounter for annual routine gynecological examination: Code(s): Z01.419 - Encounter for gynecological examination (general) (routine) without abnormal findings Plan: Discussed: Current recommendations for pap smears per ASCCP guidelines. Breast awareness and periodic self breast exams. Encouraged yearly mammograms. Maintaining a healthy lifestyle including a well balanced diet including Calcium and Vitamin D and routine exercise. Contact office with any PMB. All of her questions and concerns were addressed to the best of my ability. RTO in one year for AG. (2) Vaginal dryness, menopausal: Code(s): N95.1 - Menopausal and female climacteric states Plan: Recommended using Replens for moisturizing and lubricants such as Replens, Astroglide, K-Y jelly or Coconut oil for intimacy. (3) Tobacco use: Code(s): Z72.0 - Tobacco use Plan: Encouraged cessation. She is not interested at this time. Coding Level of Care Code Est Pt Prev Care 40-64y(09603) Diagnoses Encounter for annual routine gynecological examination Z01.419 Vaginal dryness, menopausal N95.1 Tobacco use Z72.0
[2023-02-16 13:53] VITALS: BP 120/72; BMI 32.4
== END 2023-02-16 14:30 | disposition home or self-care (01) ==
PROVIDERS: PCP Nurse Practitioner Family; Visit Provider Advanced Practice Midwife
DX: Z01.419 Encounter for gynecological examination (general) (routine) without abnormal findings (principal); N95.1 Menopausal and female climacteric states; Z72.0 Tobacco use
CPT/HCPCS: 99396

== ENCOUNTER → 2023-02-16 13:50 | Outpatient (BNVA) | payer BC, SELFPAY | PROVIDERS: PCP Nurse Practitioner Family; Visit Provider Advanced Practice Midwife ==

== ENCOUNTER 2023-03-09 14:03 | Outpatient (AMB) | payer BC, SELFPAY ==
--- NOTE | 2023-03-09 14:52 | MHC.OFFWIV ---
Intake Vital Signs 03/09/23 14:54 Height 5 ft 8 in Weight 216 lb BMI 32.8 BP 100/58 L Blood Pressure Location Rt brachial Position Sitting Pulse 72 Pulse Source Pulse Oximeter Pulse Oximetry (%) 97 Oxygen Delivery Method Room Air Intake Visit Reasons: EP, Right upper thigh tic bite Intake Note: Patient here for tic bite on inner right thigh, she states she did pull it out but is unsure if she took got the head out. she states it is red/bruising around the bite. Patient Tobacco Use Status: Current everyday Tobacco user Allergies neomycin Allergy (Unknown, Verified 03/09/23 14:57) Unknown Nickel Allergy (Unknown, Uncoded 03/09/23 14:57) rash, itching Do you need a note to return to daycare/school/sports/work: No HPI HPI Comments History of Present Illness Details This is a 62-year-old female who presents to the office today for a tick bite. Patient states she noticed a tick on the medial aspect of her right thigh and she removed the tick 2 days ago. She is not sure how long the tick was embedded but states that the tick was not engorged at that time and she does not believe the tick was embedded for > 36 hours. She denies any fever/chills, headaches, myalgias / arthralgias, abdominal pain, nausea /vomiting /diarrhea, or fatigue. Patient states she has a history of Lyme disease and has been treated in the past. [facility] Medical History Plantar fasciitis FERNANDO (obstructive sleep apnea) Vitamin D deficiency Lyme disease Depression Anxiety Surgical History Hx of colonoscopy Hx of appendectomy History of suburethral sling procedure Family History Maternal Aunt Colon cancer Paternal Grandfather Colon cancer Family/Other Colon cancer Brother Substance use disorder Mental health disorder HTN (hypertension) Sister Mental health disorder Mother Mental health disorder History of Almeida's esophagus Father Heart attack CHF (congestive heart failure) Social History Household Members: Spouse Housing: House Alcohol intake: current Patient Tobacco Use Status: Current everyday Tobacco user Cigarettes Per Day: 5 Years Smoked: 1 year e-Cigarette/Vaping Use: Never Used Second Hand Smoke Exposure: Yes Current occupational status: unemployed and retired Sexual orientation: Straight/Heterosexual Gender identity: Female Cognitive needs: No Hearing needs: No Vision needs: No Female Reproductive History Menstrual Age of Menarche: 14 Review of Systems Const All systems reviewed & are unremarkable except as noted in HPI and below Reports no additional complaints Eyes Reports no additional complaints ENT Reports no additional complaints Card Reports no additional complaints Resp Reports no additional complaints GI Reports no additional complaints Reports no additional complaints Musc Reports no additional complaints Skin/Breast Reports system reviewed and no additional complaints, except as documented Neuro Reports no additional complaints Psych Reports no additional complaints Endo Reports no additional complaints Demond/Lymph Reports no additional complaints Aller/Immun Reports no additional complaints Physical Exam Vital Signs: Last Vital Signs Pulse 72 03/09/23 14:54 BP 100/58 L 03/09/23 14:54 Pulse Ox 97 03/09/23 14:54 Oxygen Delivery Method Room Air 03/09/23 14:54 BMI result Body Mass Index 32.8 Const Other: Vital signs reviewed. Constitutional: Non-toxic appearing. No acute distress. Well-developed and well-nourished. HEENT: Normocephalic and atraumatic. Skin: Warm and dry. there is a small scab on her right medial thigh with surrounding erythema and then surrounding ecchymosis. There is no evidence of fluctuance or induration and there is no lymphangitic streaking. Neck: Full and painless range of motion. No cervical lymphadenopathy. Cardio: Regular rate. No lower extremity edema. No JVD. Pulmonary: No respiratory distress. No accessory muscle usage. Gastrointestinal: Soft, nontender, and nondistended in all 4 quadrants. Musculoskeletal: Normal range of motion in joints throughout the body. No deformity or other signs of injury. Neuro: Alert and oriented x4. Cranial nerves 2-12 grossly intact. No focal deficits appreciated. Psych: Normal mood and affect. Assessment & Plan Assessment & Plan (1) Insect bite: Code(s): W57.XXXA - Bitten or stung by nonvenomous insect and other nonvenomous arthropods, initial encounter Plan This is a 62-year-old female presenting to the office following an insect bite, tick versus spider. There is a small scab with surrounding erythema and then surrounding ecchymosis. this rash does not appear to be consistent with a bull's-eye rash. She has no systemic symptoms of a tick or spider bite. There is no indication for Lyme testing at this time given tick bite just occurred in Lyme test would not be positive until 4-6 weeks after the initial tick bite patient does not believe that the tick was embedded for over 36 hours. The bite site does not appear to be infected. I recommended patient clean the area with soap and water, apply bacitracin to the area, and cover with a bandage. Patient can also apply ice to the area for symptomatic management. Patient was encouraged to follow-up here or with her primary care physician if she were to develop any systemic symptoms of Lyme disease. Patient was advised to follow-up here or go to the emergency room if she were to develop any worsening erythema or lymphangitic streaking. Patient verbalizes her understanding and she is in agreement with the plan. Coding Level of Care Code Est Pt Level 3 (50900) Diagnoses Insect bite W57.XXXA
[2023-03-09 14:54] VITALS: BP 100/58; PULSE 72; O2SAT 97; BMI 32.8
== END 2023-03-09 17:00 | disposition home or self-care (01) ==
PROVIDERS: PCP Nurse Practitioner Family; Visit Provider Physician Assistant Medical
DX: T63.481A Toxic effect of venom of other arthropod, accidental (unintentional), initial encounter (principal)
CPT/HCPCS: 99213

== ENCOUNTER 2023-04-04 08:24 | Outpatient (AMB) | payer BC, SELFPAY ==
--- NOTE | 2023-04-04 08:28 | MHC.PC.OV ---
Vital Signs 04/04/23 08:30 Height 5 ft 8 in Weight 216 lb BMI 32.8 BP 110/62 Blood Pressure Location Rt brachial Position Sitting Pulse 62 Pulse Source Pulse Oximeter Pulse Oximetry (%) 98 Oxygen Delivery Method Room Air Intake Visit Reasons: 6m follow up Allergies neomycin Allergy (Unknown, Verified 04/04/23 08:30) Unknown Nickel Allergy (Unknown, Uncoded 04/04/23 08:30) rash, itching Tobacco use date assessed: 10/25/22 Fall risk assessment: 2 + Falls in past year Last assessed Fall Risk: 04/04/23 HPI 6m follow up HPI Details Patient is here for follow-up. She did report back in November of 2022 she had episodes of palpitations. She went to the emergency room. Short run of SVT was noted. She subsequently 5 follow-up with a baffle installer, currently missing all notes on this. She reports that echo was done and was benign, reports having a 48 hour Holter monitor. She was started on diltiazem, and reports that she has not had any symptoms since starting this medication. She will continue follow-up with cardiology as scheduled. [facility] Medical History Plantar fasciitis FERNANDO (obstructive sleep apnea) Vitamin D deficiency Lyme disease Depression Anxiety Surgical History Hx of colonoscopy Hx of appendectomy History of suburethral sling procedure Family History Maternal Aunt Colon cancer Paternal Grandfather Colon cancer Family/Other Colon cancer Brother Substance use disorder Mental health disorder HTN (hypertension) Sister Mental health disorder Mother Mental health disorder History of Almeida's esophagus Father Heart attack CHF (congestive heart failure) Social History Household Members: Spouse Housing: House Alcohol intake: current Patient Tobacco Use Status: Current everyday Tobacco user Cigarettes Per Day: 5 Years Smoked: 1 year e-Cigarette/Vaping Use: Never Used Second Hand Smoke Exposure: Yes Current occupational status: unemployed and retired Sexual orientation: Straight/Heterosexual Gender identity: Female Cognitive needs: No Hearing needs: No Vision needs: No Female Reproductive History Menstrual Age of Menarche: 14 Questionnaire Thrive Questionnaire Date Thrive assessed: 10/02/22 I am a: Patient What is your living situation today?: I have a steady place to live Within the past 12 months, did the food you bought not last and you didn't have the money to get more?: Never true Within the past 12 months, did you worry whether your food would run out before you got money to buy more?: Never true AUDIT C Alcohol Use Questionnaire (AUDIT-C) 1. How often do you have a drink containing alcohol?: 2-3 times a week 2. How many drinks containing alcohol do you have on a typical day when you are drinking?: 1 or 2 3. How often do you have six or more drinks on one occasion?: Never Total Score: 3 DAVID-7 AMB Questionnaire DAVID-7 Date DAVID - 7 assessed: 10/02/22 Feeling nervous, anxious, or on edge: 1 = Several days Not being able to stop or control worryin = Several days Worrying too much about different things: 1 = Several days Trouble relaxin = Several days Being so restless that it is hard to sit still: 0 = Not at all Becoming easily annoyed or irritable: 0 = Not at all Feeling afraid as if something awful might happen: 0 = Not at all Total DAVID-7 score (0-4 normal; 5-9 mild; 10-14 moderate; 15-21 severe): 4 Source: Developed by Drs. Baldev Martin, Radha Perez, Luis Antonio Go and colleagues, with an educational faisal from [employer]. Physical exam (Primary Care) Vital Signs: Last Vital Signs Pulse 62 04/04/23 08:30 BP 110/62 04/04/23 08:30 Pulse Ox 98 04/04/23 08:30 Oxygen Delivery Method Room Air 04/04/23 08:30 BMI result Body Mass Index 32.8 Tobacco/Smoking Status: Tobacco use Status Tobacco use date assessed 10/25/22 04/04/23 08:30 Patient Tobacco Use Status Current everyday Tobacco 04/04/23 08:30 e-Cigarette/Vaping Use Never Used 04/04/23 08:30 Thrive Assessment: Date of Thrive Assessment Date Thrive assessed 10/02/22 04/04/23 08:30 Const General: cooperative Nutritional Appearance: obese Resp Auscultation: clear to auscultation bilaterally Cardio Rate: regular rate Rhythm: regular rhythm Heart sounds: S1 normal heart sound present, S2 normal heart sound present and no murmurs Extrem Other: no edema to BLE Assessment and Plan Assessment & Plan (1) SVT (supraventricular tachycardia): Code(s): I47.10 - Supraventricular tachycardia, unspecified (2) Palpitations: Code(s): R00.2 - Palpitations Plan: Continue the diltiazem, and follow-up with Cardiology. Patient does go the emergency room with any worsening symptoms. Orders: Orders Complete Blood Count Auto Diff Today I47.10 - Supraventricular tachycardia, unspecified Comprehensive [place]. Panel Fast Today I47.10 - Supraventricular tachycardia, unspecified TSH reflex Free T4 Today I47.10 - Supraventricular tachycardia, unspecified UA CC w/rflx Micro + Cult Today I47.10 - Supraventricular tachycardia, unspecified Lipid Panel Today I47.10 - Supraventricular tachycardia, unspecified Coding Level of Care Code Est Pt Level 3 (90599) Diagnoses SVT (supraventricular tachycardia) I47.10 Palpitations R00.2
[2023-04-04 08:30] VITALS: BP 110/62; PULSE 62; O2SAT 98; BMI 32.8
== END 2023-04-04 09:16 | disposition home or self-care (01) ==
PROVIDERS: Visit Provider Nurse Practitioner Family
DX: I47.10 Supraventricular tachycardia, unspecified (principal); R00.2 Palpitations
CPT/HCPCS: 99213

== ENCOUNTER 2023-08-04 07:52 | Outpatient (REF) | payer BC, MEDICARE, SELFPAY ==
[2023-08-04 11:47] LABS: MANUAL DIFF FLAG NO
[2023-08-04 11:58] LABS: Appearance Urine Clear; Color Urine Yellow; Glucose Urine UA Negative (Negative); Leukocyte Esterase Urine Trace (Negative); Nitrite Urine Negative (Negative); Specific Gravity - Urine 1.015 (1.005-1.025); UMIC TRIGGER UACC YES; Urine Blood Negative (Negative); Urine Ketones Negative (Negative); Urine Protein Negative (Neg-Trace)
[2023-08-04 11:59] LABS: Basophils Absolute Auto 0.1 X10*3/uL (0.0-0.2); Basophils Percent Auto 0.8 % (0-2); Eosinophils Absolute Auto 0.4 X10*3/uL (0.0-0.4); Eosinophils Percent Auto 5.6 % (0-4); Hematocrit 43.9 % (37.0-47.0); Hemoglobin 14.3 g/dl (12.0-16.0); Imm Gran Abs Auto 0.01 X10*3/uL (0.00-0.03); Imm Gran Pct Auto 0.2 % (0.0-0.4); Lymphocytes Absolute Auto 2.2 X10*3/uL (1.2-4.9); Lymphocytes Percent Auto 33.2 % (20-40); Mean Corpuscular HGB Conc 32.6 g/dl (31.0-35.0); Mean Corpuscular Hemoglobin 30.6 pg (27.0-33.0); Mean Corpuscular Volume 93.8 fL (80.0-98.0); Mean Platelet Volume 10.3 fL (9.4-12.3); Monocytes Absolute Auto 0.5 X10*3/uL (0.1-1.2); Monocytes Percent Auto 7.7 % (2-11); Neutrophils Absolute Auto 3.5 x10*3/uL (2.0-8.3); Neutrophils Percent Auto 52.5 % (45-73); Platelet Count 249 X10*3/uL (160-400); Red Blood Count 4.68 X10*6/uL (4.20-5.50); Red Cell Distribution Width 14.2 % (11.0-16.0); White Blood Count 6.6 X10*3/uL (4.8-10.8)
[2023-08-04 12:06] LABS: Bacteria Urine None Seen (None Seen); Hyaline Casts Urine 0-2 /LPF (0-2); RBC Urine 0-2 /HPF (0-2); Squamous Epithelial Cell Urine 0-2 /HPF (0-2); WBC Urine 0-5 /HPF (0-5)
[2023-08-04 12:29] LABS: Alanine Aminotransferase 22 U/L (0-31); Albumin Level 3.9 g/dL (3.5-5.0); Alkaline Phosphatase 70 U/L (39-117); Anion Gap 12 (12-20); Aspartate Amino Transferase 19 U/L (5-31); Bilirubin Total 0.3 mg/dL (0.0-1.0); Blood Urea Nitrogen 11 mg/dL (9-16); Calcium 9.3 mg/dL (8.4-10.2); Carbon Dioxide 27 mmol/L (22-29); Chloride 108 mmol/L (96-108); Cholesterol 152 mg/dL (<200); Estimated Glomerular Filt Rate > 60; Glucose Fasting 99 mg/dL (60-99); HDL Cholesterol 53 mg/dL (>40); LDL Cholesterol Calculated 87 mg/dL (<100); Sodium 143 mmol/L (135-145); Total Protein 7.4 g/dL (6.5-8.0); Triglycerides 63 mg/dL (<150)
[2023-08-04 12:46] LABS: TSH reflex Free T4 1.49 uIU/mL (0.32-4.0)
== END 2023-08-04 07:53 | disposition home or self-care (01) ==
LOC: HO.HMGCLDS 07:52
PROVIDERS: PCP Nurse Practitioner Family; Visit Provider Nurse Practitioner Family
DX: Z13.6 Encounter for screening for cardiovascular disorders (principal); I47.10 Supraventricular tachycardia, unspecified
CPT/HCPCS: 36415; 80053; 80061; 81001; 81003; 84443; 85025

== ENCOUNTER 2023-08-06 08:23 | Outpatient (AMB) | payer BC, MEDICARE, SELFPAY ==
[2023-08-06 08:46] VITALS: BP 122/70; PULSE 64; TEMP 36.4; O2SAT 96; BMI 33.4
--- NOTE | 2023-08-06 08:46 | MHC.OFFWIV ---
Intake Vital Signs 08/06/23 08:46 Height 5 ft 8 in Weight 220 lb BMI 33.4 BP 122/70 Blood Pressure Location Lt brachial Position Sitting Pulse 64 Pulse Source Pulse Oximeter Temp 97.5 F Temp Source Temporal Artery Scan Pulse Oximetry (%) 96 Oxygen Delivery Method Room Air Intake Visit Reasons: EP Head/chest cold, Sore throat (masked) lobby Intake Note: pt is here today for head chest cold sore throat started 1 week ago Patient Tobacco Use Status: Current everyday Tobacco user Allergies neomycin Allergy (Unknown, Verified 08/06/23 09:11) Unknown Nickel Allergy (Unknown, Uncoded 08/06/23 09:11) rash, itching Medication List - Last Reconciled 08/06/23 by Jj Padilla MD atorvastatin 10 mg PO BEDTIME 90 days diltiazem HCl ER (DILT-XR) 120 mg PO DAILY fluoxetine 40 mg PO QAM gabapentin 100 mg PO DAILY gabapentin mg PO BEDTIME lamotrigine 100 mg PO BID omeprazole 40 mg PO DAILY 90 days trazodone 50 mg PO BEDTIME Do you need a note to return to daycare/school/sports/work: No HPI EP Head/chest cold, Sore throat (masked) lobby HPI Details Patient presents for a sick visit. Reporting symptoms of sinus congestion, sore throat and difficulty swallowing. Low-grade fever. No family member is sick. No recent travel. Patient reports symptoms of malaise and fatigue. [facility] Medical History Plantar fasciitis FERNANDO (obstructive sleep apnea) Vitamin D deficiency Lyme disease Depression Anxiety Surgical History Hx of colonoscopy Hx of appendectomy History of suburethral sling procedure Family History Maternal Aunt Colon cancer Paternal Grandfather Colon cancer Family/Other Colon cancer Brother Substance use disorder Mental health disorder HTN (hypertension) Sister Mental health disorder Mother Mental health disorder History of Almeida's esophagus Father Heart attack CHF (congestive heart failure) Social History Household Members: Spouse Housing: House Alcohol intake: current Patient Tobacco Use Status: Current everyday Tobacco user Cigarettes Per Day: 5 Years Smoked: 1 year e-Cigarette/Vaping Use: Never Used Second Hand Smoke Exposure: Yes Current occupational status: unemployed and retired Sexual orientation: Straight/Heterosexual Gender identity: Female Cognitive needs: No Hearing needs: No Vision needs: No Female Reproductive History Menstrual Age of Menarche: 14 Physical Exam Vital Signs: Last Vital Signs Temp 97.5 F 08/06/23 08:46 Pulse 64 08/06/23 08:46 BP 122/70 08/06/23 08:46 Pulse Ox 96 08/06/23 08:46 Oxygen Delivery Method Room Air 08/06/23 08:46 BMI result Body Mass Index 33.4 Const General: cooperative and healthy appearing Nutritional Appearance: well nourished Orientation/consciousness: patient oriented x3 Limitations: no limitations HEENT Head: Yes normal to inspection Eyes General: appearance normal, both eyes and all related structures Neck Neck: Yes normal visual inspection Chest Chest palpation & inspection: normal palpation of entire chest wall Resp Effort & Inspection: normal respiratory effort Neuro General: patient oriented x3 Results AMB Rapid Strep AMB Rapid Strep Negative Last Edit by Yady Abdi CMA on 08/06/23 09:13 Assessment & Plan Assessment & Plan (1) Upper respiratory tract infection: Code(s): J06.9 - Acute upper respiratory infection, unspecified Plan: Antibiotics ordered. Increase fluid intake. Tylenol for aches and pains. If symptoms worsen, follow-up here for a recheck. Viral swab ordered. Orders: Orders SARS-CoV2/FLU/RSV Today R43.9 - Unspecified disturbances of smell and taste AMB Rapid Strep Screen Today Z13.9 - Encounter for screening, unspecified Coding Level of Care Code Est Pt Level 3 (66410) Diagnoses Upper respiratory tract infection J06.9
== END 2023-08-06 10:00 | disposition home or self-care (01) ==
PROVIDERS: PCP Nurse Practitioner Family; Visit Provider Internal Medicine
DX: J06.9 Acute upper respiratory infection, unspecified (principal); J02.9 Acute pharyngitis, unspecified
CPT/HCPCS: 87880; 99213

== ENCOUNTER 2023-08-06 11:49 | Outpatient (REF) | payer BC, MEDICARE, SELFPAY ==
[2023-08-06 12:35] LABS: Influenza A PCR NEGATIVE (Negative); Influenza B PCR NEGATIVE (Negative); Resp Syncy Virus RNA Qual PCR NEGATIVE (Negative); SARS COV2 PCR INHOUSE NEGATIVE (Negative)
== END 2023-08-06 11:50 | disposition home or self-care (01) ==
LOC: HO.LNP 11:49
PROVIDERS: Visit Provider Internal Medicine
DX: Z11.52 Encounter for screening for COVID-19 (principal); Z20.822 Contact with and (suspected) exposure to COVID-19; R43.9 Unspecified disturbances of smell and taste
CPT/HCPCS: 0241U

== ENCOUNTER 2023-10-23 12:12 | Outpatient (AMB) | payer BC, SELFPAY ==
--- NOTE | 2023-10-23 12:30 | MHC.PC.OV ---
Vital Signs 10/23/23 12:32 Height 5 ft 8 in Weight 218 lb BMI 33.1 BP 114/80 Blood Pressure Location Rt brachial Position Sitting Pulse 80 Pulse Source Pulse Oximeter Pulse Oximetry (%) 98 Oxygen Delivery Method Room Air Intake Visit Reasons: PE Intake Note: Patient here for physical exam. Mammo: 2022 due this year Allergies neomycin Allergy (Unknown, Verified 10/23/23 12:48) Unknown Nickel Allergy (Unknown, Uncoded 10/23/23 12:48) rash, itching Medication List - Last Reconciled 10/23/23 by DARRIN Moore-VICKY albuterol sulfate 90 mcg/actuation (Ventolin HFA) 1 inh inhalation QID PRN atorvastatin 10 mg PO BEDTIME 90 days diltiazem HCl ER (DILT-XR) 120 mg PO DAILY fluoxetine 40 mg PO QAM gabapentin 100 mg PO DAILY gabapentin mg PO BEDTIME lamotrigine 100 mg PO ONCE omeprazole 40 mg PO DAILY 90 days trazodone 50 mg PO BEDTIME Tobacco use date assessed: 10/23/23 Fall risk assessment: No Falls in past year Last assessed Fall Risk: 10/23/23 Dental Screening Dental Screen Date: 10/23/23 Did you have a dental visit in the last 12 months?: Yes Did you have a dental problem in the last 6 months where you did not have access to dental care?: No Was dental information given to patient?: Patient has dentist HPI PE HPI Details Pt is here for a PE. Will order labs. Colon screen is scheduled. Mammo is up to date. Has a research neuropsychologist. Pt sees a psychiatrist. Pt sees sleep medicine and dermatology. Pt reports her bone density has been ordered. [facility] Medical History Plantar fasciitis FERNANDO (obstructive sleep apnea) Vitamin D deficiency Lyme disease Depression Anxiety Surgical History Hx of colonoscopy Hx of appendectomy History of suburethral sling procedure Family History Maternal Aunt Colon cancer Paternal Grandfather Colon cancer Family/Other Colon cancer Brother Substance use disorder Mental health disorder HTN (hypertension) Sister Mental health disorder Mother Mental health disorder History of Almeida's esophagus Father Heart attack CHF (congestive heart failure) Social History Household Members: Spouse Housing: House Alcohol intake: current Patient Tobacco Use Status: Current everyday Tobacco user Cigarettes Per Day: 5 Years Smoked: 1 year e-Cigarette/Vaping Use: Never Used Second Hand Smoke Exposure: Yes Current occupational status: unemployed and retired Sexual orientation: Straight/Heterosexual Gender identity: Female Cognitive needs: No Hearing needs: No Vision needs: No Female Reproductive History Menstrual Age of Menarche: 14 Questionnaire PHQ-9 Over the last 2 weeks, how often have you been bothered by any of the following problems? 1. Little interest or pleasure in doing things: not at all 2. Feeling down, depressed, or hopeless: not at all 3. Trouble falling or staying asleep, or sleeping too much: more than half the days 4. Feeling tired or having little energy: several days 5. Poor appetite or overeating: not at all 6. Feeling bad about yourself - or that you are a failure or have let yourself or your family down: not at all 7. Trouble concentrating on things, such as reading the newspaper or watching television: not at all 8. Moving or speaking so slowly that other people could have noticed. Or the opposite - being so fidgety or restless that you have been moving around a lot more than usual: not at all 9. Thoughts that you would be better off or of hurting yourself in some way: not at all Total score: 3 Depression Screening Interpretation: Negative (pt has a psychiatrist) Depression Screening Done: Yes 17383 - PHQ-9 Billing: Yes Source: Developed by Drs. Baldev Martin, Radha Perez, Luis Antonio Go and colleagues, with an educational faisal from [employer]. Thrive Questionnaire Date Thrive assessed: 10/23/23 I am a: Patient What is your living situation today?: I have a steady place to live Within the past 12 months, did the food you bought not last and you didn't have the money to get more?: Never true Within the past 12 months, did you worry whether your food would run out before you got money to buy more?: Never true Do you have trouble paying for medicines?: No Do you have trouble getting transportation to medical appointments?: No Do you have trouble paying your heating and electricity bill?: No Do you have trouble taking care of your child, family member or friend?: No Do you have trouble with day-to-day activities such as bathing, preparing meals, shopping, managing finances, etc.?: No Are you currently unemployed and looking for a job?: No Are you interested in more education?: No Currently or been in a relationship where the following occur: I choose not to answer this question THRIVE Score: 0 DAVID-7 AMB Questionnaire DAVID-7 Date DAVID - 7 assessed: 10/23/23 Feeling nervous, anxious, or on edge: 0 = Not at all Not being able to stop or control worryin = Not at all Worrying too much about different things: 0 = Not at all Trouble relaxin = Not at all Being so restless that it is hard to sit still: 0 = Not at all Becoming easily annoyed or irritable: 0 = Not at all Feeling afraid as if something awful might happen: 0 = Not at all Total DAVID-7 score (0-4 normal; 5-9 mild; 10-14 moderate; 15-21 severe): 0 Source: Developed by Drs. Baldev Martin, Radha Perez, Luis Antonio Go and colleagues, with an educational faisal from [employer]. DAVID-7 Assessment Billing DAVID-7 Assessment Tool: DAVID-7 Assessment 55714 Review of Systems Const Denies chills and Denies fever(s) Eyes Denies blurry vision ENT Denies vertigo, Denies dizziness and Denies sore throat Card Denies chest pain at rest, Denies chest pain with activity, Denies diaphoresis, Denies dyspnea and Denies dyspnea on exertion Resp Denies cough, Denies dyspnea, Denies dyspnea on exertion and Denies wheezing GI Denies abdominal pain, Denies melena, Denies hematochezia, Denies constipation, Denies diarrhea and Denies loose stools Denies hematuria Musc Denies numbness and Denies tingling Skin/Breast Denies lesions Neuro Denies vertigo, Denies dizziness, Denies numbness and Denies tingling Psych Denies anxiety, Denies depression, Denies homicidal ideation, Denies suicidal ideation and Denies other (substance abuse) Aller/Immun Denies wheezing Physical exam (Primary Care) Vital Signs: Last Vital Signs Pulse 80 10/23/23 12:32 BP 114/80 10/23/23 12:32 Pulse Ox 98 10/23/23 12:32 Oxygen Delivery Method Room Air 10/23/23 12:32 BMI result Body Mass Index 33.1 Tobacco/Smoking Status: Tobacco use Status Tobacco use date assessed 10/23/23 10/23/23 12:36 Patient Tobacco Use Status Current everyday Tobacco 10/23/23 12:30 e-Cigarette/Vaping Use Never Used 10/23/23 12:30 Depression Screening Interpretation: Negative (pt has a psychiatrist) Thrive Assessment: Date of Thrive Assessment Date Thrive assessed 10/02/22 10/23/23 12:30 Currently or been in a relationship where the following occur: I choose not to answer this question Const General: cooperative Nutritional Appearance: obese Orientation/consciousness: patient oriented x3 HENMT Head: Yes normal to inspection, Yes normocephalic and Yes atraumatic Ears: TM's normal bilaterally Eyes General: appearance normal, both eyes and all related structures Alignment and Position: alignment normal and position normal Neck Neck: Yes normal visual inspection and Yes no lymphadenopathy Thyroid: Thyroid normal Resp Effort & Inspection: normal respiratory effort Auscultation: clear to auscultation bilaterally Cardio Rate: regular rate Rhythm: regular rhythm Heart sounds: S1 normal heart sound present, S2 normal heart sound present and no murmurs GI Palpation (GI): Soft to palpation and nontender Auscultation: normal bowel sounds Skin Rashes: no rashes Neuro General: patient oriented x3, moves all extremities, no focal motor deficits and deep tendon reflexes 2+ bilaterally Romberg Test: Negative Psych Appearance: grossly normal Mental Status: mental status grossly normal Speech and movement: Normal speech and movement present Affect: normal affect Attitude: cooperative Thought process: Normal thought process present Thought content: Normal thought content present Insight: Good insight present (Psych) Judgement: Good judgement present (Psych) Assessment and Plan Assessment & Plan (1) Physical exam: Code(s): Z00.00 - Encounter for general adult medical examination without abnormal findings Plan: Labs ordered Plan The patient agreed to the use of a medical assistant float for this encounter. Scribed for DARRIN Wiseman-VICKY by Melissa Scott, medical assistant float, on 10/23/2023 at 12:45 EST. Orders: Orders Complete Blood Count Auto Diff Today Z00.01 - Encounter for general adult medical examination with abnormal findings Comprehensive [place]. Panel Fast Today Z00.01 - Encounter for general adult medical examination with abnormal findings TSH reflex Free T4 Today Z00.01 - Encounter for general adult medical examination with abnormal findings UA CC w/rflx Micro + Cult Today Z00.01 - Encounter for general adult medical examination with abnormal findings Lipid Panel Today Z00.01 - Encounter for general adult medical examination with abnormal findings Coding Level of Care Code Est Pt Prev Care >65y(82296) Diagnoses Physical exam Z00.00 Additional Codes DAVID-7 Assessment Billing - DAVID-7 Assessment Tool: DAVID-7 Assessment 60819 ([id number])
[2023-10-23 12:32] VITALS: BP 114/80; PULSE 80; O2SAT 98; BMI 33.1
== END 2023-10-23 13:00 | disposition home or self-care (01) ==
PROVIDERS: Visit Provider Nurse Practitioner Family
DX: Z00.00 Encounter for general adult medical examination without abnormal findings (principal)
CPT/HCPCS: 99397

== ENCOUNTER 2024-02-05 09:34 | Outpatient (REF) | payer BC, MEDICARE, SELFPAY ==
--- NOTE | ~2024-02-05 | MM_ITS ---
EXAMINATION: BONE DENSITOMETRY CLINICAL INDICATION: Asymptomatic menopausal state. COMPARISON: Previous BD dated 05/19/2021 and baseline BD dated 03/13/2017. TECHNIQUE: Using a [employer] DXA System (software version: 13.1) manufactured by [employer], dual-energy x-ray absorptiometry was performed of the lumbar spine and left hip. The images are of good technical quality. Summary results are attached. FINDINGS: LEFT FEMUR, NECK: Current: BMD 0.838 g/cm2, Z-score -0.7, T-score -1.4, osteopenia. Prior: BMD 0.852 g/cm2. Baseline: BMD 0.892 g/cm2. LEFT FEMUR, TOTAL: Current: BMD 0.950 g/cm2, Z-score 0.0, T-score -0.5, normal, 0.6% decrease from previous, 1.1% increase from baseline (<5% change is not significant). Prior: BMD 0.956 g/cm2. Baseline: BMD 0.940 g/cm2. AP SPINE L1-L4: Current: BMD 1.268 g/cm2, Z-score 1.2, T-score 0.7, normal, 2.2% increase from previous, 3.7% decrease from baseline (<5% change is not significant). Prior: BMD 1.241 g/cm2. Baseline: BMD 1.317 g/cm2. IDENTIFIED RISK FACTORS: Menopause. HISTORY OF FRACTURE: None listed. MEDICATIONS: Calcium. MM/XR DEXA axial skeleton IMPRESSION: 1. DIAGNOSIS: Osteopenia based on the lowest T-score value of -1.4 in the femoral neck applying World Health Organization criteria. 2. 10-YEAR FRACTURE RISK PREDICTION, FRAX: Major osteoporotic fracture (clinical spine, forearm, hip or shoulder) 8.4%. Hip fracture 0.9%. 3. Treatment Recommendations: NOF guidelines recommend consideration for treatment in postmenopausal women and men age 50 and older presenting with the following: -A hip or vertebral (clinical or morphometric) fracture. -T-score less than or equal to -2.5 at the femoral neck or spine after appropriate evaluation to exclude secondary causes. -Low bone mass at the hip or spine and a 10-year fracture probability by FRAX of greater than or equal to 3% for hip fracture or greater than or equal to 20% for major osteoporotic fracture based on the [place] adapted WHO algorithm. 4. Other Recommendations: All treatment decisions require clinical judgment and consideration of individual patient factors, including patient preferences, comorbidities, previous drug use, risk factors not captured in the FRAX model (e.g. frailty, falls, vitamin D deficiency, increased bone turnover, interval significant decline in bone density) and possible under or overestimation of fracture risk by FRAX. Additional medical evaluation for secondary cause of low bone mineral density may be appropriate. FUTURE SCAN RECOMMENDATION: People with diagnosed cases of osteoporosis or at high risk for fracture should have regular bone mineral density tests. For patients eligible for Medicare, routine testing is allowed once every 2 years. The testing frequency can be increased to one year for patients who have rapidly progressing disease, those who are receiving or discontinuing medical therapy to restore bone mass, or have additional risk factors. Electronically signed by: Amarjit Wilkerson MD 02/05/2024 12:40 PM EDT
--- NOTE | ~2024-02-05 | MM_ITS ---
EXAMINATION: MM SCREENING DIGITAL BREAST TOMOSYNTHESIS, BILATERAL CLINICAL INFORMATION: Screening. Asymptomatic. COMPARISON: Mammography: Comparison is made with available priors TECHNIQUE: Digital breast mammography with tomosynthesis is performed in both the craniocaudal and mediolateral oblique views along with computer-aided detection (CAD). FINDINGS: There are scattered areas of fibroglandular density (ACR BI-RADS breast composition Category b). There are no significant masses, abnormal calcifications, or other abnormalities. MM/MM tomosynthesis screening BI IMPRESSION: No mammographic evidence of malignancy. ASSESSMENT: BI-RADS BI-RADS 1 - Negative RECOMMENDATION: Routine annual mammography screening. 1 year F/U This examination should not preclude the clinical evaluation of a suspicious palpable abnormality. This patient's information was entered into a reminder system with a target due date for their next mammogram. Electronically signed by: Maria Del Rosario Espan[place] DO 02/23/2024 10:39 PM EDT
== END 2024-02-05 09:35 | disposition home or self-care (01) ==
LOC: HO.MAMMO 09:34
PROVIDERS: PCP Nurse Practitioner Family; Visit Provider Nurse Practitioner Family
DX: Z12.31 Encounter for screening mammogram for malignant neoplasm of breast (principal); Z13.820 Encounter for screening for osteoporosis; Z78.0 Asymptomatic menopausal state; E55.9 Vitamin D deficiency, unspecified
CPT/HCPCS: 77063; 77067; 77080

== ENCOUNTER → 2024-02-05 09:45 | Outpatient (BNV) | payer BC, MEDICARE, SELFPAY | PROVIDERS: PCP Nurse Practitioner Family; Visit Provider Internal Medicine | DX: Z12.31 Encounter for screening mammogram for malignant neoplasm of breast (principal) | CPT/HCPCS: 77063; 77067 ==

== ENCOUNTER 2024-02-15 09:31 | Day surgery (SDC) | payer BC, MEDICARE, SELFPAY ==
--- NOTE | 2024-02-13 15:22 | HO.ANESPROP2 ---
HPI - Anesthesia Eval Consult details Narrative: 63yo F for Upper Endoscopy and Colonoscopy Follows [facility] Cardiolgy for palps. 2022 w/u negative. Stable at 07/2023 office visit [facility] Active Problems Active Problems: All Active Problems Encounter for routine adult physical exam with abnormal findings (Acute) Palpitations (Acute) SVT (supraventricular tachycardia) (Acute) Acid reflux (Acute) Chronic constipation (Acute) Dysphagia (Acute) Anxiety (Acute) Depression (Acute) Vitamin D deficiency (Acute) Dermatitis (Acute) Encounter for annual routine gynecological examination (Acute) Osteoarthritis of left knee (Acute) Dyslipidemia (Acute) Skin lesions (Acute) Postmenopausal (Acute) Osteopenia (Acute) Right hip pain (Acute) Left knee pain (Acute) Restless leg (Acute) Sorethroat (Acute) Tremor of right hand (Acute) Positive García's Sign (Acute) Right upper quadrant pain (Acute) Restless leg (Acute) Postmenopausal (Acute) Physical exam (Acute) Past Medical History Medical History GERD (gastroesophageal reflux disease) Bronchitis Elevated cholesterol History of palpitations Hx of supraventricular tachycardia Osteopenia Plantar fasciitis FERNANDO (obstructive sleep apnea) Vitamin D deficiency Lyme disease Depression Anxiety Family History Family History Maternal Aunt Colon cancer Paternal Grandfather Colon cancer Family/Other Colon cancer Brother Substance use disorder Mental health disorder HTN (hypertension) Sister Mental health disorder Mother Mental health disorder History of Almeida's esophagus Father Heart attack CHF (congestive heart failure) Surgical History Surgical History Hx of colonoscopy Hx of appendectomy History of suburethral sling procedure Social History Social History Household Members: Spouse Housing: House Alcohol intake: current Patient Tobacco Use Status: Current everyday Tobacco user Tobacco use type: Cigarette Cigarettes Per Day: 5 Years Smoked: 1 year e-Cigarette/Vaping Use: Never Used Second Hand Smoke Exposure: Yes Current occupational status: unemployed and retired Sexual orientation: Straight/Heterosexual Gender identity: Female Cognitive needs: No Hearing needs: No Vision needs: No Meds Allergies Allergy/AdvReac Type Severity Reaction Status Date / Time neomycin Allergy Unknown Unknown Verified 02/20/24 13:19 Nickel Allergy Unknown rash, Uncoded 10/23/23 12:48 itching Home Medications ?Medication ?Instructions ?Recorded ?Confirmed ?Last Taken ?Type fluoxetine 40 mg capsule 40 mg PO QAM 09/27/20 02/20/24 Unknown History trazodone 50 mg tablet 50 mg PO BEDTIME PRN Insomnia 09/27/20 02/20/24 Unknown History gabapentin 300 mg capsule 600 mg PO BEDTIME 11/10/21 02/20/24 Unknown History gabapentin 100 mg capsule 100 mg PO DAILY 08/06/23 02/20/24 Unknown History lamotrigine 100 mg tablet 100 mg PO DAILY 10/23/23 02/20/24 Unknown History Assessment and Plan Assessment Anesthesia Assessment: Chart Reviewed
[2024-02-15 10:19] VITALS: BMI 31.9
[2024-02-15 10:25] VITALS: BP 127/83; PULSE 77; RESP 15; TEMP 36.6; O2SAT 96
[2024-02-15] MEDS: Lactated Ringers 1,000 ML 100 ML IVCONT (10:38)
--- NOTE | 2024-02-15 10:58 | MHC.SHP ---
Pre-Procedural Eval Section A - 24 Hr Update-Section A only Date of Service: 02/15/24 The patient is an INPATIENT: No The patient has been examined within 24 hours of the surgical procedure. The History & Physical has been completed within 30 days and I have reviewed it.: No Section B - Complete if H&P > 30 days Chief Complaint: screening, GERD, dysphagia Relevant Family History (Specify if Yes): Yes Relevant Social History: Tobacco Use (Former smoker) Present Medications: see Short Stay Collaborative assessment Medical History: Significant History (Anxiety Depression Lyme disease FERNANDO (obstructive sleep apnea) Plantar fasciitis Vitamin D deficiency) History of Previous Operations: Relevant previous surgery/procedure and date(s) (History of suburethral sling procedure Hx of appendectomy Hx of colonoscopy) Allergies: Allergies Allergy/AdvReac Type Severity Reaction Status Date / Time neomycin Allergy Unknown Unknown Verified 02/15/24 10:24 Nickel Allergy Unknown rash, Uncoded 10/23/23 12:48 itching Review of Systems Sugical H&P ROS: Negative: Constitution, Cardiovascular, Respiratory and Gastrointestinal Exam Surgical H&P Exam: Normal: Heart, Normal: Lungs, Normal: Extremities and Normal: Abdomen Plan Diagnosis/Plan: Unchanged I have reviewed the history and physical and performed a pertinent physical examination on my patient. No changes have occurred unless specified. Time Spent With Patient Time: Total time managing care of this patient today ____ minutes.
--- NOTE | 2024-02-15 11:30 | HO.ANESPROP2 ---
[facility] Active Problems Active Problems: All Active Problems Encounter for routine adult physical exam with abnormal findings (Acute) Palpitations (Acute) SVT (supraventricular tachycardia) (Acute) Acid reflux (Acute) Chronic constipation (Acute) Dysphagia (Acute) Dermatitis (Acute) Encounter for annual routine gynecological examination (Acute) Osteoarthritis of left knee (Acute) Dyslipidemia (Acute) Skin lesions (Acute) Postmenopausal (Acute) Right hip pain (Acute) Left knee pain (Acute) Restless leg (Acute) Sorethroat (Acute) Tremor of right hand (Acute) Positive García's Sign (Acute) Right upper quadrant pain (Acute) Restless leg (Acute) Postmenopausal (Acute) Physical exam (Acute) Anxiety (Acute) Depression (Acute) Vitamin D deficiency (Acute) Osteopenia (Acute) Past Medical History Medical History GERD (gastroesophageal reflux disease) Bronchitis Elevated cholesterol History of palpitations Hx of supraventricular tachycardia Osteopenia Plantar fasciitis FERNANDO (obstructive sleep apnea) Vitamin D deficiency Lyme disease Depression Anxiety Functional capacity: independent ambulation Patient : No Family History Family History Maternal Aunt Colon cancer Paternal Grandfather Colon cancer Family/Other Colon cancer Brother Substance use disorder Mental health disorder HTN (hypertension) Sister Mental health disorder Mother Mental health disorder History of Almeida's esophagus Father Heart attack CHF (congestive heart failure) Surgical History Surgical History Hx of colonoscopy Hx of appendectomy History of suburethral sling procedure History of Problems with Anesthesia: No Social History Social History Household Members: Spouse Housing: House Alcohol intake: current Patient Tobacco Use Status: Current everyday Tobacco user Tobacco use type: Cigarette Cigarettes Per Day: 5 Years Smoked: 1 year e-Cigarette/Vaping Use: Never Used Second Hand Smoke Exposure: Yes Use of substances other than those prescribed or required for medical reasons: No Are you DNR?: No Advance Directives: No Advance Directives Information Provided: Yes Current occupational status: unemployed and retired Sexual orientation: Straight/Heterosexual Gender identity: Female Cognitive needs: No Hearing needs: No Vision needs: No Meds Allergies Allergy/AdvReac Type Severity Reaction Status Date / Time neomycin Allergy Unknown Unknown Verified 02/15/24 10:24 Nickel Allergy Unknown rash, Uncoded 10/23/23 12:48 itching Active Medications: Current Medications Lactated Ringer's (Lr) 1,000 mls @ 100 mls/hr IVCONT .Q10H YESSICA Last Admin: 02/15/24 10:38 Dose: 100 mls/hr Home Medications ?Medication ?Instructions ?Recorded ?Confirmed ?Last Taken ?Type fluoxetine 40 mg capsule 40 mg PO QAM 09/27/20 02/15/24 Unknown History trazodone 50 mg tablet 50 mg PO BEDTIME PRN Insomnia 09/27/20 02/15/24 Unknown History gabapentin 300 mg capsule 600 mg PO BEDTIME 11/10/21 02/15/24 Unknown History gabapentin 100 mg capsule 100 mg PO DAILY 08/06/23 02/15/24 Unknown History lamotrigine 100 mg tablet 100 mg PO DAILY 10/23/23 02/15/24 Unknown History acetaminophen 325 mg tablet 650 mg PO Q4H PRN Pain 02/15/24 02/15/24 02/15/24 03:00 History Exam Height,Weight and Vital Signs: Height 5 ft 8 in Weight 95.254 kg Last Vital Signs Temp 97.8 F 02/15/24 10:25 Pulse 77 02/15/24 10:25 Resp 15 02/15/24 10:25 BP 127/83 02/15/24 10:25 Pulse Ox 96 02/15/24 10:25 O2 Del Method Room Air 02/15/24 10:25 Assessment and Plan Final Anesthetic Review History of Problems with Anesthesia: No
--- NOTE | 2024-02-15 12:21 | HO.OPN-COLON ---
Colonoscopy Operative Note Operative Note Date of Service: 02/15/24 Narrative: FLEXIBLE TRANSORAL UPPER GASTROINTESTINAL ENDOSCOPY WITH BIOPSIES AND ESOPHAGEAL BALLOON DILATION AND COLONOSCOPY TILL CECUM Pre-op diagnosis: Colon cancer screening, GERD, Dysphagia Post-op diagnosis: Hiatal hernia, Schatzki's ring, Gastritis, Gastric polyps, Diverticulosis, hemorrhoids Endoscopist:? Hoa Davies MD Anesthesia:?MAC UPPER ENDOSCOPY Consent: Indications for the procedure and potential complications of bleeding, perforation, reaction to medications and missed diagnosis were discussed with the patient and informed consent was obtained. Instrument: Olympus GIF H 190 mid size upper endoscope Monitoring: Vital signs and clinical assessment, continuous EKG monitoring, Pulse oximetry, Carbon Dioxide monitoring and blood pressure monitoring were done throughout the procedure. Procedure: The patient was placed in the left lateral decubitis position and pre-procedure medications were administered and a bite block was placed. The endoscope was inserted into the mouth and advanced under direct vision to the third part of duodenum. A careful inspection was made as the upper endoscope was withdrawn including a retroflexed examination of the proximal stomach; Findings and interventions are described below. Findings: Larynx: Normal Esophagus: GE junction at 36 cms, small hiatal hernia 36 to 38 cms. A 1 cms tongue of possible Almeida's - biopsied. A non-obstructing Schatzki's ring - dilated with a 20 mm (60 F) CRE balloon x 60 seconds Biopsies obtained from proximal, mid and distal esophagus to check for EOE. Stomach: A few 5 to 10 mm benign appearing polyps in the gastric fundus - biopsied. Moderate diffuse gastric erythema - biopsies were obtained from the gastric body and antrum. Grade 3 flap valve on retroflexed examination of the cardia. Duodenum: Normal bulb and descending duodenum Intervention: Biopsies as noted above COLONOSCOPY PROCEDURE NOTE Instrument: Olympus PCF H 190 L variable stiffness pediatric colonoscope Monitoring: Vital signs and clinical assessment, intermittent blood pressure monitoring, continuous EKG monitoring, Pulse oximetry and Carbon Dioxide monitoring were done throughout the procedure. Please see anesthesia flowsheet. Colon withdrawl time was 14 minutes. Procedure: The patient was placed in the left lateral decubitis position and pre-procedure medications were administered. After a digital rectal examination of the ano-rectum, the video colonoscope was inserted into the rectum and advanced through the colon to the cecum. The colonoscope was slowly withdrawn in a retrograde panoramic fashion and the colon mucosa was carefully examined including a retroflexed view of the rectum. Findings and interventions are described below. Procedure Difficulty: without difficulty Findings: Terminal Ileum: Not evaluated Cecum: Normal Ascending Colon: Normal Transverse Colon: Normal Descending Colon: Normal Sigmoid Colon: Moderate diverticulosis Rectum: Normal Ano-rectum: Small internal hemorrhoids Colon preparation: Good after copious irrigation. [place] Bowel Preparation Scale Right colon; 2 Transverse colon: 2 Left colon; 2 (0 = Unprepared colon segment with mucosa not seen due to solid stool that cannot be cleared. 1 = Portion of mucosa of the colon segment seen, but other areas of the colon segment not well seen due to staining, residual stool and/or opaque liquid. 2 = Minor amount of residual staining, small fragments of stool and/or opaque liquid, but mucosa of colon segment seen well. 3 = Entire mucosa of colon segment seen well with no residual staining, small fragments of stool or opaque liquid) Impression and Post Procedure Diagnosis: Endoscopy Findings: ESOPHAGUS: Small hiatal hernia, non-obstructing Schatzki's ring (dilated) and possible Lameida's STOMACH: Gastritis and benign-appearing gastric polyps DUODENUM: Normal Colonoscopy Findings: No polyps were detected Moderate diverticulosis seen in the sigmoid colon small hemorrhoids on retroflexed exam. Plan: I will send a letter with biopsy results. Pt has a FU appointment on 05/15/24 with REGULO Avila, Repeat Colonoscopy in 10 years since pt has had two negative colonoscopies . Above findings were reviewed with the patient and relevant handouts were given and the discharge area. BIOPSIES SHOWED: A. Stomach, antrum, biopsy: Gastric antral mucosa with mild chronic inflammation and intestinal metaplasia; negative for Helicobacter pylori and dysplasia. B. Stomach, body, biopsy: Gastric antral and body mucosa within normal limits; negative for Helicobacter pylori, intestinal metaplasia and dysplasia. C. Stomach, polyp, biopsy: Fundic gland polyp. D. Gastroesophageal junction, biopsy: Gastric cardia type mucosa with moderate chronic active inflammation; no squamous mucosa seen; negative for intestinal metaplasia and dysplasia. E. Esophagus, distal, biopsy: Squamous mucosa within normal limits; negative for inflammation (including intraepithelial eosinophils), fungal organisms, intestinal metaplasia and dysplasia. F. Esophagus, mid, biopsy: Squamous mucosa within normal limits; negative for inflammation (including intraepithelial eosinophils), fungal organisms, intestinal metaplasia and dysplasia. G. Esophagus, proximal, biopsy: Squamous mucosa within normal limits; negative for inflammation (including intraepithelial eosinophils), fungal organisms, intestinal metaplasia and dysplasia. Letter sent with biopsy results Pt placed on a recall list for colonoscopy
[2024-02-15 12:57] VITALS: BP 121/76; PULSE 76; RESP 19; TEMP 36.1; O2SAT 96
[2024-02-15 13:27] VITALS: BP 133/77; PULSE 68; RESP 20; TEMP 36.1; O2SAT 94
--- NOTE | 2024-02-15 13:27 | HO.POSTANES ---
Post Anesthesia Evaluation Post Anesthesia Evaluation Date of Service: 02/15/24 Vital Signs: Vital Signs Temp Pulse Resp BP Pulse Ox O2 Del Method 02/15/24 12:57 97 F 76 19 121/76 96 Room Air 02/15/24 10:25 97.8 F 77 15 127/83 96 Room Air Anesthesia: Monitored Mental Status: Awake Pain Control: Satisfactory Nausea/Vomiting: None Hydration: Adequate Anesthesia-Related Issues: No Anes. Related Issues
== END 2024-02-15 14:00 | disposition home or self-care (01) ==
PROVIDERS: PCP Nurse Practitioner Family; Visit Provider Internal Medicine Gastroenterology
PROC: (CPT 45378; principal; 2024-02-15 11:20)
DX: Z12.11 Encounter for screening for malignant neoplasm of colon (principal); K57.30 Diverticulosis of large intestine without perforation or abscess without bleeding; K64.8 Other hemorrhoids; K59.09 Other constipation; R13.10 Dysphagia, unspecified; K22.2 Esophageal obstruction; K21.9 Gastro-esophageal reflux disease without esophagitis; K29.50 Unspecified chronic gastritis without bleeding; K31.7 Polyp of stomach and duodenum; K44.9 Diaphragmatic hernia without obstruction or gangrene; J40 Bronchitis, not specified as acute or chronic; G47.33 Obstructive sleep apnea (adult) (pediatric); E55.9 Vitamin D deficiency, unspecified; A69.20 Lyme disease, unspecified; M85.80 Other specified disorders of bone density and structure, unspecified site; E78.00 Pure hypercholesterolemia, unspecified; Z79.899 Other long term (current) drug therapy; Z88.1 Allergy status to other antibiotic agents; F17.210 Nicotine dependence, cigarettes, uncomplicated; Z87.891 Personal history of nicotine dependence
CPT/HCPCS: 45378; 43249; 43239; 88305; 88313; 88342; C1726; J1596; J2704

== ENCOUNTER → 2024-02-15 09:31 | Outpatient (BNV) | payer BC, MEDICARE, SELFPAY | PROVIDERS: PCP Nurse Practitioner Family; Visit Provider Internal Medicine Gastroenterology | DX: Z12.11 Encounter for screening for malignant neoplasm of colon (principal); K21.9 Gastro-esophageal reflux disease without esophagitis; K57.30 Diverticulosis of large intestine without perforation or abscess without bleeding; K64.8 Other hemorrhoids; K29.70 Gastritis, unspecified, without bleeding; K22.2 Esophageal obstruction; K31.7 Polyp of stomach and duodenum | CPT/HCPCS: 43239; 43249; 45378 ==

== ENCOUNTER 2024-02-20 13:11 | Outpatient (AMB) | payer BC, SELFPAY ==
[2024-02-20 13:15] VITALS: BP 118/64; BMI 28.6
--- NOTE | 2024-02-20 13:15 | A.OFFVIS_ITS ---
Vital Signs 02/20/24 13:15 Height 5 ft 8 in Weight 188 lb BMI 28.6 BP 118/64 Blood Pressure Location Lt brachial Intake Visit Reasons: Annual [employer] Required: No Allergies neomycin Allergy (Unknown, Verified 02/20/24 13:19) Unknown Nickel Allergy (Unknown, Uncoded 10/23/23 12:48) rash, itching Medication List - Last Reconciled 02/20/24 by Caryn Barnett LPN albuterol sulfate 90 mcg/actuation (Ventolin HFA) 1 inh inhalation QID PRN atorvastatin 10 mg PO BEDTIME 90 days diltiazem HCl ER (DILT-XR) 120 mg PO DAILY fluoxetine 40 mg PO QAM gabapentin 100 mg PO DAILY gabapentin 600 mg PO BEDTIME lamotrigine 100 mg PO DAILY omeprazole 40 mg PO DAILY 90 days trazodone 50 mg PO BEDTIME PRN Is last menstrual period known: No Post menopausal: No Patient : No Do you need a note to return to daycare/school/sports/work: No HPI Comments Details: She is a 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 She is doing well with no concerns. Attempting to eat a healthy diet with calcium and vitamin D and stays active with exercise. Currently sexually active. She reports occasional external irritation. Uses Replens for dryness. STI testing offered; she declined. Last pap smear; 2021, negative. Last mammogram; 2023, report pending read. Colonoscopy is UTD. Denies any family history of ovarian. FH colon cancer, breast cancer-distant relative. [facility] Medical History GERD (gastroesophageal reflux disease) Bronchitis Elevated cholesterol History of palpitations Hx of supraventricular tachycardia Osteopenia Plantar fasciitis FERNANDO (obstructive sleep apnea) Vitamin D deficiency Lyme disease Depression Anxiety Surgical History Hx of colonoscopy Hx of appendectomy History of suburethral sling procedure Family History Maternal Aunt Colon cancer Paternal Grandfather Colon cancer Family/Other Colon cancer Brother Substance use disorder Mental health disorder HTN (hypertension) Sister Mental health disorder Mother Mental health disorder History of Almeida's esophagus Father Heart attack CHF (congestive heart failure) Social History Household Members: Spouse Housing: House Alcohol intake: current Patient Tobacco Use Status: Current everyday Tobacco user Tobacco use type: Cigarette Cigarettes Per Day: 5 Years Smoked: 1 year e-Cigarette/Vaping Use: Never Used Second Hand Smoke Exposure: Yes Current occupational status: unemployed and retired Sexual orientation: Straight/Heterosexual Gender identity: Female Cognitive needs: No Hearing needs: No Vision needs: No Female Reproductive History Menstrual Age of Menarche: 14 Total pregnancies: 0 Date of last pap smear: 12/22/21 History of abnormal pap smear: No Date of Mammogram: 02/05/24 History of abnormal mammogram: No Date of last Bone Density Screenin02/05/24 Review of Systems Const All systems reviewed & are unremarkable except as noted in HPI and below Reports as per HPI Eyes Reports no additional complaints ENT Reports no additional complaints Card Reports no additional complaints Resp Reports no additional complaints GI Reports as per HPI and Reports no additional complaints Reports as per HPI Musc Reports no additional complaints Skin/Breast Reports as per HPI Neuro Reports no additional complaints Psych Reports no additional complaints Endo Reports no additional complaints Demond/Lymph Reports no additional complaints Aller/Immun Reports no additional complaints Physical Exam Const General: cooperative, healthy appearing, no acute distress, well developed and alert Orientation/consciousness: patient oriented x3 HEENT Head: Yes normal to inspection Eyes General: appearance normal, both eyes and all related structures Neck Neck: Yes normal visual inspection Thyroid: Thyroid normal Chest Chest palpation & inspection: normal inspection of the chest and other (no puckering, dimpling, peau de orange, retraction, discharge, masses) Breast/axilla inspection: normal inspection of the breasts Breast/axilla palpation: normal palpation of the breasts Resp Effort & Inspection: normal respiratory effort GI Inspection: Yes normal to inspection Palpation (GI): Soft to palpation Rectal Exam - Female: deferred Other: External hypopigmentation noted predominantly in the left labia minora, small amount of area on the right labia minora and perineum, no thickening, parchment, erythema or lesions. General: Yes bladder normal to palpation External Female Exam: normal external appearance and normal appearance of the urethra Speculum Exam - Vagina: normal appearance of the vagina, normal palpation, normal vaginal discharge, vagina atrophic and other (Area of posterior vagina adjacent to cervix with contracted ring of vagina) Speculum Exam - Cervix: normal appearance of the cervix and normal palpation Bimanual exam- vagina & uterus: normal bimanual exam, normal palpation, uterine size normal, bladder normal to palpation, normal palpation and non-tender Bimanual Exam- Adnexa, other: no masses Skin General skin exam: no rashes or lesions noted Rashes: no rashes Neuro General: patient oriented x3 Cognition (Neuro): normal cognition Extrem General: Yes normal to inspection Psych Attitude: cooperative Thought process: Normal thought process present Assessment & Plan Assessment & Plan (1) Encounter for well woman exam with routine gynecological exam: Code(s): Z01.419 - Encounter for gynecological examination (general) (routine) without abnormal findings Category: Medical (2) Lichen sclerosus: Code(s): L90.0 - Lichen sclerosus et atrophicus (3) Vaginal atrophy: Code(s): N95.2 - Postmenopausal atrophic vaginitis Plan Discussed: Current recommendations for pap smears per ASCCP guidelines. Breast awareness, periodic self breast exams and yearly mammogram. Maintain a healthy lifestyle, well balanced diet including Calcium 1,200 mg and Vitamin D 600 IU daily, and routine exercise. Contact the office with any postmenopausal bleeding. Skin changes consistent with lichen sclerosus, plan treatment option and re- evaluation of skin in 8-10 weeks. Aging changes-atrophy and effects on women's vaginal health. Continue use with Replens if any symptoms to notify office for a follow up. Patient verbalizes understanding and agrees to the plan of care. She was given opportunity to ask questions and all questions were answered to the best of my ability. RTO in 1 year for annual checkroom attendant exam. This note is constructed using voice recognition software. While every effort has been made to ensure accuracy, iron melter errors may have been included. Medications: New clobetasol 0.05% Apply a thin coat at bedtime for two weeks, then every other day for two weeks, then twice a week. Not to be used with other topical cortisone cream in the area at the same time 1 g topical .twice weekly 90 days 45 grams 1RF Coding Level of Care Code Est Pt Prev Care >65y(81778) Diagnoses Encounter for well woman exam with routine gynecological exam Z01.419 Lichen sclerosus L90.0 Vaginal atrophy N95.2
== END 2024-02-20 14:26 | disposition home or self-care (01) ==
PROVIDERS: PCP Nurse Practitioner Family; Visit Provider Advanced Practice Midwife
DX: Z01.419 Encounter for gynecological examination (general) (routine) without abnormal findings (principal); L90.0 Lichen sclerosus et atrophicus; N95.2 Postmenopausal atrophic vaginitis
CPT/HCPCS: 99397

== ENCOUNTER → 2024-02-20 13:11 | Outpatient (BNVA) | payer BC, SELFPAY | PROVIDERS: PCP Nurse Practitioner Family; Visit Provider Advanced Practice Midwife ==

== ENCOUNTER 2024-06-17 14:03 | Outpatient (AMB) | payer BC, SELFPAY ==
--- NOTE | 2024-06-17 14:36 | MHC.OFFVIS ---
Vital Signs 06/17/24 14:38 BP 130/72 Intake Visit Reasons: Medication follow up Cancellation Clerk: Cancellation Clerk Present (Usha) Allergies neomycin Allergy (Unknown, Verified 06/17/24 14:37) Unknown Nickel Allergy (Unknown, Uncoded 10/23/23 12:48) rash, itching Is last menstrual period known: Yes HPI Comments Details: Patient is here today for a follow up on her lichen sclerosus she had started her medication late so she is just tapered off the dosing, from twice a day, she reports no itching or concerns. [facility] Medical History GERD (gastroesophageal reflux disease) Bronchitis Elevated cholesterol History of palpitations Hx of supraventricular tachycardia Osteopenia Plantar fasciitis FERNANDO (obstructive sleep apnea) Vitamin D deficiency Lyme disease Depression Anxiety Surgical History Hx of colonoscopy Hx of appendectomy History of suburethral sling procedure Family History Maternal Aunt Colon cancer Paternal Grandfather Colon cancer Family/Other Colon cancer Brother Substance use disorder Mental health disorder HTN (hypertension) Sister Mental health disorder Mother Mental health disorder History of Almeida's esophagus Father Heart attack CHF (congestive heart failure) Social History Household Members: Spouse Housing: House Alcohol intake: current Patient Tobacco Use Status: Current everyday Tobacco user Tobacco use type: Cigarette Cigarettes Per Day: 5 Years Smoked: 1 year e-Cigarette/Vaping Use: Never Used Second Hand Smoke Exposure: Yes Current occupational status: unemployed and retired Sexual orientation: Straight/Heterosexual Gender identity: Female Cognitive needs: No Hearing needs: No Vision needs: No Female Reproductive History Menstrual Age of Menarche: 14 Review of Systems Const All systems reviewed & are unremarkable except as noted in HPI and below Endo Reports no additional complaints Physical Exam Vital Signs: Last Vital Signs BP 130/72 06/17/24 14:38 Const General: cooperative, healthy appearing and no acute distress Other: External inspection only: Atrophic changes, hypopigmentation from remy clitoral bilateral labial to perineum and perianal region, no excoriations or lesions or thickening or apartment. Psych Appearance: well kempt Attitude: cooperative Thought process: Normal thought process present Assessment & Plan Assessment & Plan (1) Lichen sclerosus: Code(s): L90.0 - Lichen sclerosus et atrophicus (2) Follow-up encounter involving medication: Code(s): Z79.899 - Other skilled nursing (current) drug therapy Plan Reviewed medication use-advised not to use twice a day should be using it twice a week, a how apply, where to apply, skin changes to look for if there is any bleeding, open sores, excoriations, itching on resolve, thickening or scabby appearing tissue. Use of a hand mirror to review the skin area in the area that needs to be medicated. Taper down to twice a week for now, plan med check review in 3 months if doing well will taper to [place]. If any symptoms itching bleeding or as noted above to call the office and come in sooner for evaluation. The patient expressed understanding and agreement with the plan of care. All of her questions and concerns were addressed to the best of my ability. This note is constructed using voice recognition software. While every effort has been made to ensure accuracy, screen examiner errors may have been included. Medications: Refilled clobetasol 0.05% Apply a thin coat at bedtime for two weeks, then every other day for two weeks, then twice a week. Not to be used with other topical cortisone cream in the area at the same time 1 g topical .twice weekly 90 days 45 grams 2RF Coding Level of Care Code Est Pt Level 3 (28852) Diagnoses Lichen sclerosus L90.0 Follow-up encounter involving medication Z79.899
[2024-06-17 14:38] VITALS: BP 130/72
== END 2024-06-17 15:29 | disposition home or self-care (01) ==
PROVIDERS: PCP Nurse Practitioner Family; Visit Provider Advanced Practice Midwife
DX: L90.0 Lichen sclerosus et atrophicus (principal); Z79.899 Other long term (current) drug therapy
CPT/HCPCS: 99213

== ENCOUNTER → 2024-06-17 14:03 | Outpatient (BNVA) | payer BC, SELFPAY | PROVIDERS: PCP Nurse Practitioner Family; Visit Provider Advanced Practice Midwife ==

== ENCOUNTER 2024-06-26 06:36 | Outpatient (REF) | payer BC, SELFPAY ==
[2024-06-26 10:13] LABS: MANUAL DIFF FLAG NO
[2024-06-26 10:26] LABS: Basophils Absolute Auto 0.1 X10*3/uL (0.0-0.2); Basophils Percent Auto 1.1 % (0-2); Eosinophils Absolute Auto 0.4 X10*3/uL (0.0-0.4); Eosinophils Percent Auto 5.2 % (0-4); Hemoglobin 13.4 g/dl (12.0-16.0); Imm Gran Abs Auto 0.01 X10*3/uL (0.00-0.03); Imm Gran Pct Auto 0.1 % (0.0-0.4); Lymphocytes Absolute Auto 1.7 X10*3/uL (1.2-4.9); Lymphocytes Percent Auto 23.8 % (20-40); Mean Corpuscular HGB Conc 31.9 g/dl (31.0-35.0); Mean Corpuscular Hemoglobin 29.7 pg (27.0-33.0); Mean Corpuscular Volume 93.1 fL (80.0-98.0); Mean Platelet Volume 10.2 fL (9.4-12.3); Monocytes Absolute Auto 0.6 X10*3/uL (0.1-1.2); Monocytes Percent Auto 8.5 % (2-11); Neutrophils Absolute Auto 4.3 x10*3/uL (2.0-8.3); Neutrophils Percent Auto 61.3 % (45-73); Platelet Count 303 X10*3/uL (160-400); Red Blood Count 4.51 X10*6/uL (4.20-5.50); Red Cell Distribution Width 14.4 % (11.0-16.0); White Blood Count 7.1 X10*3/uL (4.8-10.8)
[2024-06-26 10:47] LABS: Alanine Aminotransferase 20 U/L (0-31); Albumin Level 3.8 g/dL (3.5-5.0); Alkaline Phosphatase 77 U/L (39-117); Anion Gap 11 (12-20); Aspartate Amino Transferase 22 U/L (5-31); Bilirubin Total 0.4 mg/dL (0.0-1.0); Blood Urea Nitrogen 14 mg/dL (9-16); Calcium 9.5 mg/dL (8.4-10.2); Carbon Dioxide 25 mmol/L (22-29); Chloride 109 mmol/L (96-108); Cholesterol 143 mg/dL (<200); Estimated Glomerular Filt Rate > 60; Glucose Fasting 84 mg/dL (60-99); HDL Cholesterol 57 mg/dL (>40); LDL Cholesterol Calculated 75 mg/dL (<100); Potassium 3.8 mmol/L (3.3-5.1); Sodium 141 mmol/L (135-145); Total Protein 7.5 g/dL (6.5-8.0); Triglycerides 55 mg/dL (<150)
[2024-06-26 11:06] LABS: Appearance Urine Clear; Color Urine Yellow; Glucose Urine UA Negative (Negative); Leukocyte Esterase Urine Trace (Negative); Nitrite Urine Negative (Negative); PH 5.5 (5.0-9.0); UMIC TRIGGER UACC YES; Urine Blood Negative (Negative); Urine Ketones Negative (Negative); Urine Protein Negative (Neg-Trace)
[2024-06-26 11:10] LABS: TSH reflex Free T4 1.96 uIU/mL (0.32-4.0)
[2024-06-26 11:14] LABS: Bacteria Urine None Seen (None Seen); Hyaline Casts Urine 0-2 /LPF (0-2); RBC Urine 0-2 /HPF (0-2); Squamous Epithelial Cell Urine 0-2 /HPF (0-2); WBC Urine 0-5 /HPF (0-5)
== END 2024-06-26 06:37 | disposition home or self-care (01) ==
LOC: HO.HMGCLDS 06:36
PROVIDERS: PCP Nurse Practitioner Family; Visit Provider Nurse Practitioner Family
DX: Z00.01 Encounter for general adult medical examination with abnormal findings (principal); Z13.0 Encounter for screening for diseases of the blood and blood-forming organs and certain disorders involving the immune mechanism; Z13.29 Encounter for screening for other suspected endocrine disorder
CPT/HCPCS: 36415; 80053; 80061; 81001; 81003; 84443; 85025

== ENCOUNTER 2024-08-05 09:23 | Outpatient (AMB) | payer BC, SELFPAY ==
--- NOTE | 2024-08-05 09:26 | A.OFFVIS_ITS ---
Vital Signs 08/05/24 09:35 Height 5 ft 8 in Weight 212 lb 1.355 oz BMI 32.2 BP 128/58 L Blood Pressure Location Rt brachial Position Sitting Pulse 72 Pulse Source Pulse Oximeter Pulse Oximetry (%) 96 Oxygen Delivery Method Room Air Intake Visit Reasons: Patient, s/p double. Re-Establish Intake Note: ESTABLISHED PATIENT for s/p duo, mgmt of GERD w/ dysphagia. Chief Complaint; C/O mild to moderate constipation. Pt reports taking some of her husbands old senna PRN which has been helping with mgmt of this condition. Pt states that her omeprazole has controlled her reflux but does have occasional episodes which seems to be related to her lamictal. No additional concerns at this time. Power System Dispatcher Required: No Accompanied by: Self / Same As Patient Allergies nickel Allergy (Intermediate, Verified 08/05/24 09:27) Rash neomycin Allergy (Unknown, Verified 06/17/24 14:37) Unknown HPI HPI Patient, s/p double. Re-Establish: Details: LAST VISIT WITH JENNIFER RAJPUT 62-year-old female referred with dysphagia- globus-She has noted pills don't pass easily- she had a hx of severe acid- had cardiac eval- was no finding- began omeprazole 20mgnow increased to omeprazole 40 mg- Recent ED for pressure- she had NSVT- PVC's referred back to cardiology- seeing them in end January- after holter monitor- P- and M side colon cancer- Last colonoscopy- 2018- Dr. Rubio- no adenoma- Appetite is good- Bowels- a bit slow- no blood no belly pain- fever/chills UPPER ENDOSCOPY AND COLONOSCOPY WITH DR. RUBIO Findings: Larynx: Normal Esophagus: GE junction at 36 cms, small hiatal hernia 36 to 38 cms. A 1 cms tongue of possible Almeida's - biopsied. A non-obstructing Schatzki's ring - dilated with a 20 mm (60 F) CRE balloon x 60 seconds Biopsies obtained from proximal, mid and distal esophagus to check for EOE. Stomach: A few 5 to 10 mm benign appearing polyps in the gastric fundus - biopsied. Moderate diffuse gastric erythema - biopsies were obtained from the gastric body and antrum. Grade 3 flap valve on retroflexed examination of the cardia. Duodenum: Normal bulb and descending duodenum Intervention: Biopsies as noted above COLONOSCOPY PROCEDURE NOTE Instrument: Olympus PCF H 190 L variable stiffness pediatric colonoscope Monitoring: Vital signs and clinical assessment, intermittent blood pressure monitoring, continuous EKG monitoring, Pulse oximetry and Carbon Dioxide monitoring were done throughout the procedure. Please see anesthesia flowsheet. Colon withdrawl time was 14 minutes. Procedure: The patient was placed in the left lateral decubitis position and pre-procedure medications were administered. After a digital rectal examination of the ano-rectum, the video colonoscope was inserted into the rectum and advanced through the colon to the cecum. The colonoscope was slowly withdrawn in a retrograde panoramic fashion and the colon mucosa was carefully examined including a retroflexed view of the rectum. Findings and interventions are described below. Procedure Difficulty: without difficulty Findings: Terminal Ileum: Not evaluated Cecum: Normal Ascending Colon: Normal Transverse Colon: Normal Descending Colon: Normal Sigmoid Colon: Moderate diverticulosis Rectum: Normal Ano-rectum: Small internal hemorrhoids Colon preparation: Good after copious irrigation. [place] Bowel Preparation Scale Right colon; 2 Transverse colon: 2 Left colon; 2 (0 = Unprepared colon segment with mucosa not seen due to solid stool that cannot be cleared. 1 = Portion of mucosa of the colon segment seen, but other areas of the colon segment not well seen due to staining, residual stool and/or opaque liquid. 2 = Minor amount of residual staining, small fragments of stool and/or opaque liquid, but mucosa of colon segment seen well. 3 = Entire mucosa of colon segment seen well with no residual staining, small fragments of stool or opaque liquid) Impression and Post Procedure Diagnosis: Endoscopy Findings: ESOPHAGUS: Small hiatal hernia, non-obstructing Schatzki's ring (dilated) and possible Almeida's STOMACH: Gastritis and benign-appearing gastric polyps DUODENUM: Normal Colonoscopy Findings: No polyps were detected Moderate diverticulosis seen in the sigmoid colon small hemorrhoids on retroflexed exam. Plan: I will send a letter with biopsy results. Pt has a FU appointment on 05/15/24 with REGULO Avila, Repeat Colonoscopy in 10 years since pt has had two negative colonoscopies . Above findings were reviewed with the patient and relevant handouts were given and the discharge area. BIOPSIES SHOWED: A. Stomach, antrum, biopsy: Gastric antral mucosa with mild chronic inflammation and intestinal metaplasia; negative for Helicobacter pylori and dysplasia. B. Stomach, body, biopsy: Gastric antral and body mucosa within normal limits; negative for Helicobacter pylori, intestinal metaplasia and dysplasia. C. Stomach, polyp, biopsy: Fundic gland polyp. D. Gastroesophageal junction, biopsy: Gastric cardia type mucosa with moderate chronic active inflammation; no squamous mucosa seen; negative for intestinal metaplasia and dysplasia. E. Esophagus, distal, biopsy: Squamous mucosa within normal limits; negative for inflammation (including intraepithelial eosinophils), fungal organisms, intestinal metaplasia and dysplasia. F. Esophagus, mid, biopsy: Squamous mucosa within normal limits; negative for inflammation (including intraepithelial eosinophils), fungal organisms, intestinal metaplasia and dysplasia. G. Esophagus, proximal, biopsy: Squamous mucosa within normal limits; negative for inflammation (including intraepithelial eosinophils), fungal organisms, intestinal metaplasia and dysplasia. TODAY'S VISIT Patient is here today for follow-up and to discuss upper endoscopy and colonoscopy results. Patient previously seen by Jennifer RAJPUT, however provider no longer in this practice. Patient reports no ill effects from the prep, anesthesia or procedure itself. Patient reports to be feeling fairly well. Symptoms of acid reflux have been suppressed for the most part with omeprazole. Occasional acid reflux depending on what she eats. Trouble moving her bowels, however patient reports that she has tried her senna and reports that it was effective. Patient denies any melena, hematochezia, unintentional weight loss or ribbon like stools. Patient denies any dyspepsia, dysphagia or odynophagia [facility] Medical History GERD (gastroesophageal reflux disease) Bronchitis Elevated cholesterol History of palpitations Hx of supraventricular tachycardia Osteopenia Plantar fasciitis FERNANDO (obstructive sleep apnea) Vitamin D deficiency Lyme disease Depression Anxiety Surgical History Hx of endoscopy Hx of colonoscopy Hx of appendectomy History of suburethral sling procedure Family History Maternal Aunt Colon cancer Paternal Grandfather Colon cancer Family/Other Colon cancer Brother Substance use disorder Mental health disorder HTN (hypertension) Sister Mental health disorder Mother Mental health disorder History of Almeida's esophagus Father Heart attack CHF (congestive heart failure) Social History Household Members: Spouse Housing: House Alcohol intake: current Patient Tobacco Use Status: Current everyday Tobacco user Tobacco use type: Cigarette Cigarettes Per Day: 5 Years Smoked: 1 year e-Cigarette/Vaping Use: Never Used Second Hand Smoke Exposure: Yes Current occupational status: unemployed and retired Sexual orientation: Straight/Heterosexual Gender identity: Female Cognitive needs: No Hearing needs: No Vision needs: No Female Reproductive History Menstrual Age of Menarche: 14 Review of Systems Const Denies weight gain and Denies weight loss ENT Reports no additional complaints, Denies dysphagia and Denies odynophagia Card Reports no additional complaints Resp Reports no additional complaints GI Denies abdominal pain, Denies belching, Denies melena, Denies bloating, Denies change in bowel habits, Reports constipation, Denies dysphagia, Denies excessive flatus, Denies dyspepsia, Reports heartburn (Occasional), Denies diarrhea, Denies loose stools, Denies nausea, Denies odynophagia and Denies vomiting Reports no additional complaints Musc Reports no additional complaints Neuro Reports no additional complaints Psych Reports no additional complaints Endo Reports no additional complaints Physical Exam Vital Signs: Last Vital Signs Pulse 72 08/05/24 09:35 BP 128/58 L 08/05/24 09:35 Pulse Ox 96 08/05/24 09:35 Oxygen Delivery Method Room Air 08/05/24 09:35 BMI result Body Mass Index 32.2 Const General: healthy appearing and no acute distress Nutritional Appearance: obese Orientation/consciousness: patient oriented x3 Resp Effort & Inspection: normal respiratory effort, able to speak in complete sentences, no tracheal deviation and symmetric chest movement Auscultation: clear to auscultation bilaterally Cardio Rate: regular rate GI Inspection: Yes normal to inspection, No distended and Yes obesity Palpation (GI): Soft to palpation, not firm, nontender and No hepatosplenomegaly present Auscultation: normal bowel sounds General: Yes no CVA tenderness Back/Spine/Pelvis Back: no CVA tenderness Skin General skin exam: elasticity normal, turgor normal and dry skin Neuro General: patient oriented x3 Psych Appearance: grossly normal Mental Status: mental status grossly normal Assessment & Plan Assessment & Plan (1) Dysphagia: Code(s): R13.10 - Dysphagia, unspecified Category: Medical Qualifiers: Dysphagia type: other dysphagia Qualified Code(s): R13.19 - Other dysphagia (2) Acid reflux: Code(s): K21.9 - Gastro-esophageal reflux disease without esophagitis Category: Medical Qualifiers: Esophagitis presence: without esophagitis Qualified Code(s): K21.9 - Gastro-esophageal reflux disease without esophagitis (3) Constipation: Code(s): K59.00 - Constipation, unspecified Qualifiers: Constipation type: slow transit constipation Qualified Code(s): K59.01 - Slow transit constipation Plan Continue omeprazole daily. Avoid dietary triggers and late night snacking. Staying upright for minimal 3 hours after meals discussed with patient. Patient will start taking Senokot daily. Encouraged patient to take fiber with pre and probiotic. Increase fluid intake and activity to promote better bowel motility. Patient overall is doing well and will follow-up in our office as needed. She is agreeable to current plan of care and verbalizes understanding of instructions. She was given the opportunity to ask questions and all questions answered. Thank you for allowing me to participate in her care Medications: New sennosides (Natural Senna Laxative) 8.6 mg PO BEDTIME 90 tabs 3RF constipation K59.00 - Constipation, unspecified Coding Level of Care Code Est Pt Level 3 (59067) Diagnoses Other dysphagia R13.19 Dysphagia type: other dysphagia Gastroesophageal reflux disease without esophagitis K21.9 Esophagitis presence: without esophagitis Slow transit constipation K59.01 Constipation type: slow transit constipation Time Spent (min) 35 Comment 25 minutes spent with patient and additional 10 minutes spent reviewing her records
[2024-08-05 09:35] VITALS: BP 128/58; PULSE 72; O2SAT 96; BMI 32.2
--- OUTSIDE RECORDS SUMMARY | 2024-08-05 10:30 | XMS_ITS | Clinical Summary ---
Author Organization [facility] Address [phone] [facility] [place] [address] Care Team Providers Care Corporate Concierge Name Role Phone Johnny Calero BUSINESS CHANGE MANAGER Primary Care Provider + Social History Tobacco Use Types Packs/Day Years Used Date Smoking Tobacco: Never Assessed Sex and Gender Information Value Date Recorded Sex Assigned at Not on file Gender Identity Not on file Sexual Orientation Not on file Plan of Treatment Health Maintenance Due Date Last Done Comments Adult Td,Tdap Booster 1958 LIPID PANEL 1958 DEPRESSION SCREENING 1970 HEPATITIS B SCREENING 1976 HEPATITIS C SCREENING 1976 MAMMOGRAM 1998 PNEUMOCOCCAL VACCINES (50+ years) (1 of 1 - PCV) 2008 OSTEOPOROSIS SCREENING INITIAL (ONE-TIME) 2023 INFLUENZA VACCINE (#1) 2024 , 06/24/2021, 04/09/2019, Additional history exists COVID-19 VACCINE ( season) 2024 03/29/2022, 06/24/2021, 07/26/2020, Additional history exists RSV VACCINE (1 - 1-dose 75+ series) 2033 ZOSTER VACCINES Completed 10/11/2021, 07/27/2021 COLORECTAL CANCER SCREENING Completed HEPATITIS A VACCINES Aged Out No long er eligible based on patient's age to complete this topic HEPATITIS B VACCINES Aged Out No long er eligible based on patient's age to complete this topic HIB VACCINES Aged Out No longer eligi ble based on patient's age to complete this topic MENINGOCOCCAL VACCINES (ACWY) Aged Out No longer eligible based on patient's age to complete this topic Medical Devices Not on file Care Teams Corporate Concierge Relationship Specialty Start Date End Date Johnny Calero NP [address] [place] [id number] PCP - General Nurse Practitioner 08/08/22 Additional Source Comments The information contained in this document represents components of the legal health record. It is not the complete legal health record.[facility]
== END 2024-08-05 10:22 | disposition home or self-care (01) ==
PROVIDERS: PCP Nurse Practitioner Family; Visit Provider Nurse Practitioner Family
DX: R13.19 Other dysphagia (principal); K21.9 Gastro-esophageal reflux disease without esophagitis; K59.01 Slow transit constipation
CPT/HCPCS: 99213

== ENCOUNTER → 2024-08-05 09:23 | Outpatient (BNVA) | payer BC, SELFPAY | PROVIDERS: PCP Nurse Practitioner Family; Visit Provider Nurse Practitioner Family ==

== ENCOUNTER 2024-08-22 10:30 | Outpatient (AMB) | payer BC, SELFPAY ==
--- NOTE | 2024-08-22 10:43 | AM.OFFWIN_ITS ---
Intake Vital Signs 08/22/24 10:44 Height 5 ft 8 in Weight 217 lb BMI 33.0 BP 122/90 H Blood Pressure Location Lt brachial Position Sitting Pulse 67 Pulse Source Pulse Oximeter Pulse Oximetry (%) 98 Oxygen Delivery Method Room Air Intake Visit Reasons: EP LT hip/back/buttock pain Intake Note: Patient here left hip, back and buttocks pain that has been present for about 2 weeks. Patient Tobacco Use Status: Current everyday Tobacco user Allergies nickel Allergy (Intermediate, Verified 08/22/24 10:49) Rash neomycin Allergy (Unknown, Verified 08/22/24 10:49) Unknown Do you need a note to return to daycare/school/sports/work: No HPI HPI Comments History of Present Illness Details History of Present Illness The patient is a 64-year-old female presenting with pain in her left low back, buttocks and left leg. - Symptoms emerged alongside yoga activi ties involving posture that strained her left side. - The pain is located on the left side, starting from the lower back and radiating down the buttocks into the leg. - The patient describes the pain as tawana p and shooting, aggravated by bending and prolonged standing. - Over the past one and a half weeks, th e pain has intensified significantly, interfering with her daily activities. - Current management with medications li ke Motrin, acetaminophen, and topical tr eatments provides only partial relief. - The patient has not experienced bladde r or bowel incontinence. - She uses ice for pain relief and has b een informed about anti-inflammatory measures. - The patient is actively attempting brandyn ght loss to alleviate joint-related stress. Physical Exam General: Cooperative, healthy appearing, comfortable, no acute distress and well developed Orientation: Patient oriented x3 Limitations: No limitations Head: Normal to inspection Ears: Hearing grossly normal bilaterally Nose: Normal External nose present Face and sinus: Normal facial exam Eyes: Appearance normal, both eyes and all related structures Neck: Normal visual inspection and Yes full ROM Respiratory: Normal respiratory effort and able to speak in complete sentences. Skin: No rashes or lesions noted Neuro: Patient oriented x3 Extremities: Normal to inspection, positive straight leg left side [facility] Medical History GERD (gastroesophageal reflux disease) Bronchitis Elevated cholesterol History of palpitations Hx of supraventricular tachycardia Osteopenia Plantar fasciitis FERNANDO (obstructive sleep apnea) Vitamin D deficiency Lyme disease Depression Anxiety Surgical History Hx of endoscopy Hx of colonoscopy Hx of appendectomy History of suburethral sling procedure Family History Maternal Aunt Colon cancer Paternal Grandfather Colon cancer Family/Other Colon cancer Brother Substance use disorder Mental health disorder HTN (hypertension) Sister Mental health disorder Mother Mental health disorder History of Almeida's esophagus Father Heart attack CHF (congestive heart failure) Social History Household Members: Spouse Housing: House Alcohol intake: current Patient Tobacco Use Status: Current everyday Tobacco user Tobacco use type: Cigarette Cigarettes Per Day: 5 Years Smoked: 1 year e-Cigarette/Vaping Use: Never Used Second Hand Smoke Exposure: Yes Current occupational status: unemployed and retired Sexual orientation: Straight/Heterosexual Gender identity: Female Cognitive needs: No Hearing needs: No Vision needs: No Female Reproductive History Menstrual Age of Menarche: 14 Review of Systems Const All systems reviewed & are unremarkable except as noted in HPI and below Physical Exam Vital Signs: Last Vital Signs Pulse 67 08/22/24 10:44 BP 122/90 H 08/22/24 10:44 Pulse Ox 98 08/22/24 10:44 Oxygen Delivery Method Room Air 08/22/24 10:44 BMI result Body Mass Index 33.0 Assessment & Plan Assessment & Plan (1) Acute left-sided low back pain with sciatica: Code(s): M54.40 - Lumbago with sciatica, unspecified side Qualifiers: Sciatica laterality: sciatica of left side Qualified Code(s): M54.42 - Lumbago with sciatica, left side Plan: Plan The main focus is on treating sciatica pain with a prescribed oral steroid taper to manage inflammation effectively. The anticipated benefit is a reduction in acute symptoms linked to sciatica. Continuation of current medications like acetaminophen is recommended for pain as needed as well as ice. Recommended she stop any NSAIDS while taking the prednisone to avoid risk of GI bleeding. The patient has been advised on the importance of weight management to reduce mechanical stress on the back and the beneficial role of physical therapy for core strengthening. A follow-up strategy to monitor the response to treatment is planned, with immediate attention if symptoms like bowel or bladder changes occur. Gave patient Up To Date hand out on sciatica and stretches she can do at home. Patient was informed and verbally consented to the use of an ambient scribe for clinic note documentation during this visit. Medications: New prednisone take 4 tablets on days 1-2, take 3 tablets on days 3-4, take 2 tablets on days 5-6, take 1 tablet on days 7-8. 10 mg PO DIRECTED 20 tabs 0RF Coding Level of Care Code Est Pt Level 3 (77826) Diagnoses Acute left-sided low back pain with left-sided sciatica M54.42 Sciatica laterality: sciatica of left side
[2024-08-22 10:44] VITALS: BP 122/90; PULSE 67; O2SAT 98; BMI 33.0
--- OUTSIDE RECORDS SUMMARY | 2024-08-22 12:33 | XMS_ITS | Clinical Summary ---
Author Organization [facility] Address [address] [place] [phone] Phone Care Team Providers Care Tear Down Matcher Name Role Phone Johnny Calero NP Primary Care Provider + Social History Tobacco [...] Medical Devices Not on file Care Teams Tear Down Matcher Relationship Specialty Start Date End Date Johnny Calero NP [address] [place] [id number] PCP - General Nurse Practitioner 08/08/22 Additional Source Comments The information contained in this document represents components of the legal health record. It is not the complete legal health record.[facility]
== END 2024-08-22 11:43 | disposition home or self-care (01) ==
PROVIDERS: PCP Nurse Practitioner Family; Visit Provider Physician Assistant
DX: M54.42 Lumbago with sciatica, left side (principal)

== ENCOUNTER 2024-09-03 07:05 | Outpatient (REF) | payer BC, SELFPAY ==
--- NOTE | ~2024-09-03 | XR_ITS ---
EXAMINATION: XR LUMBOSACRAL SPINE CLINICAL INFORMATION: M54.42 - Lumbago with sciatica, left side COMPARISON: None available. TECHNIQUE: Three views of the lumbosacral spine. FINDINGS: Transitional lumbosacral anatomy with 6 nonrib-bearing vertebral bodies. For purposes of this report, the last fully developed vertebral body will be termed L5. No significant scoliosis. Normal lumbar lordosis. No fracture, compression deformity, or suspicious bone lesion evident. There is a 6 mm anterolisthesis of L4 on L5, degenerative in appearance. No definite pars defects evident. Alignment is otherwise anatomic. There is diffuse disc space degeneration, with moderate to severe degeneration at L4-5 and L5-S1. There is normal facet alignment. Hypertrophic degenerative facet changes are present L4-S1. SI joints appear normal. Sacrum appears intact. There are no soft tissue abnormalities identified. XR/XR lumbar spine 2-3V IMPRESSION: 1. Transitional lumbosacral anatomy. 2. There is a 6 mm degenerative anterolisthesis of L4 on L5. No definite pars defects. 3. There is moderate spondylosis relatively confined to L4-S1. Electronically signed by: Watson Viveros MD 09/04/2024 09:51 AM EDT
--- OUTSIDE RECORDS SUMMARY | 2024-09-03 16:04 | XMS_ITS | Clinical Summary ---
Author Organization [facility] Address [address] [place] [phone] Phone Care Team Providers Care Training And Development Project Leader Name Role Phone Johnny Calero NP Primary [...] Medical Devices Not on file Care Teams Training And Development Project Leader Relationship Specialty Start Date End Date Johnny Calero NP [address] [place] [phone] PCP - General Nurse Practitioner 08/08/22 Additional Source Comments The information contained in this document represents components of the legal health record. It is not the complete legal health record.[facility]
== END 2024-09-03 07:06 | disposition home or self-care (01) ==
LOC: HO.HMGCX 07:05
PROVIDERS: PCP Nurse Practitioner Family; Visit Provider Nurse Practitioner Family
DX: M54.42 Lumbago with sciatica, left side (principal)
CPT/HCPCS: 72100

== ENCOUNTER 2024-09-03 07:05 | Outpatient (AMB) | payer BC, SELFPAY ==
--- NOTE | 2024-09-03 07:21 | A.OFFPC_ITS ---
Intake Visit Reasons: walk in f/up Allergies nickel Allergy (Intermediate, Verified 09/03/24 07:25) Rash neomycin Allergy (Unknown, Verified 09/03/24 07:25) Unknown Medication List - Last Reconciled 09/03/24 by Johnny Calero [facility]- albuterol sulfate 90 mcg/actuation (Ventolin HFA) 1 inh inhalation QID PRN atorvastatin 10 mg PO BEDTIME 90 days cholecalciferol (vitamin D3) 50 mcg PO DAILY clobetasol 0.05% 1 g topical .twice weekly 90 days dexamethasone 4 mg PO DAILY 9 days diltiazem HCl ER (DILT-XR) 120 mg PO DAILY fluoxetine 40 mg PO QAM gabapentin 100 mg PO DAILY gabapentin 600 mg PO BEDTIME lamotrigine 100 mg PO DAILY omeprazole 40 mg PO DAILY 90 days sennosides (Natural Senna Laxative) 8.6 mg PO BEDTIME trazodone 50 mg PO BEDTIME PRN Tobacco use date assessed: 10/23/23 Dental Screening Dental Screen Date: 10/23/23 HPI walk in f/up HPI Details History of Present Illness The patient is a 64-year-old female presenting with concerns regarding ongoing left-sided sciatica. Her symptoms began approximately two weeks before her urgent care visit on August 22, precipitated by yoga activities. The symptoms involve pain extending from her lower back down the left leg, including the buttock. She has denied any symptoms that would suggest cauda equina syndrome. Prednisone was previously prescribed, and the patient reported that it was beneficial in alleviating her symptoms, slightly. Review of Systems - Neurological: Denies any signs or symp toms of cauda equina syndrome Plan For the management of left-sided sciatica, I will prescribe a tapering course of dexamethasone due to its previous efficacy in symptom relief. Initiating physical therapy is recommended to improve mobility and alleviate symptoms. I will also obtain a lumbar spine x-ray to investigate potential structural causes of her symptoms. Treatment plans will be adjusted based on her response to therapy and imaging results. Discussion Notes I discussed the management of left-sided sciatica with the patient, including the initiation of dexamethasone, given the prior success with prednisone, to help reduce inflammation and pain. We reviewed the plan to start physical therapy to improve her condition through targeted exercises and stretching. I also explained the rationale for obtaining a lumbar spine x-ray to evaluate any potential structural issues. Any further decisions regarding treatment will be based on her progress and imaging results. The patient was informed of the need for follow-up to assess the efficacy of interventions and agreed with the proposed plan. Patient Instructions - Begin taking the prescribed dexamethas one as instructed. - Attend scheduled physical therapy sess ions. - Undergo a lumbar spine x-ray as schedu led. - Report any significant changes in symp toms to ensure timely follow-up. - Avoid activities that exacerbate pain, specifically refrain from yoga until further evaluation. [facility] Medical History GERD (gastroesophageal reflux disease) Bronchitis Elevated cholesterol History of palpitations Hx of supraventricular tachycardia Osteopenia Plantar fasciitis FERNANDO (obstructive sleep apnea) Vitamin D deficiency Lyme disease Depression Anxiety Surgical History Hx of endoscopy Hx of colonoscopy Hx of appendectomy History of suburethral sling procedure Family History Maternal Aunt Colon cancer Paternal Grandfather Colon cancer Family/Other Colon cancer Brother Substance use disorder Mental health disorder HTN (hypertension) Sister Mental health disorder Mother Mental health disorder History of Almeida's esophagus Father Heart attack CHF (congestive heart failure) Social History Household Members: Spouse Housing: House Alcohol intake: current Patient Tobacco Use Status: Current everyday Tobacco user Tobacco use type: Cigarette Cigarettes Per Day: 5 Years Smoked: 1 year Packs per year/per ci.00 e-Cigarette/Vaping Use: Never Used Second Hand Smoke Exposure: Yes Current occupational status: unemployed and retired Sexual orientation: Straight/Heterosexual Gender identity: Female Cognitive needs: No Hearing needs: No Vision needs: No Female Reproductive History Menstrual Age of Menarche: 14 Questionnaire Thrive Questionnaire Date Thrive assessed: 10/23/23 AUDIT C Alcohol Use Questionnaire (AUDIT-C) 2. How many drinks containing alcohol do you have on a typical day when you are drinking?: 1 or 2 3. How often do you have six or more drinks on one occasion?: Never Total Score: 0 DAVID-7 AMB Questionnaire DAVID-7 Date DAVID - 7 assessed: 10/23/23 Source: Developed by Drs. Baldev Martin, Radha Perez, Luis Antonio Go and colleagues, with an educational faisal from [employer]. Physical exam (Primary Care) Tobacco/Smoking Status: Tobacco use Status Tobacco use date assessed 10/23/23 09/03/24 07:22 Patient Tobacco Use Status Current everyday Tobacco 09/03/24 07:22 Tobacco use type Cigarette 09/03/24 07:22 e-Cigarette/Vaping Use Never Used 09/03/24 07:22 Thrive Assessment: Date of Thrive Assessment Date Thrive assessed 10/23/23 09/03/24 07:22 Telehealth Telehealth Telehealth Platform: [employer] Location of provider rendering services: practice address Location of patient: address on file Patient Identification confirmed using: Name, : Yes Telehealth method: video Patient verbally consented to treatment: Yes Patient verbally consented to billing insurance company: Yes Patient informed of any privacy concerns related to visit: Yes Minutes spent on Phone/Video with Pt.: 12 Coding Level of Care Code Tele Est Pt Level 3 (32274) Diagnoses Acute left-sided low back pain with left-sided sciatica M54.42 Sciatica laterality: sciatica of left side Assessment & Plan Assessment & Plan (1) Acute left-sided low back pain with sciatica: Code(s): M54.40 - Lumbago with sciatica, unspecified side Category: Medical Qualifiers: Sciatica laterality: sciatica of left side Qualified Code(s): M54.42 - Lumbago with sciatica, left side Plan . Orders: Orders XR lumbar spine 2-3V Today M54.42 - Lumbago with sciatica, left side PT Evaluation and Treatment Today M54.42 - Lumbago with sciatica, left side Medications: New dexamethasone 1 tab 3 x a day for 3 days, 1 tab twice a day for 3 days, 1 tab once a day for 3 days 4 mg PO DAILY 18 tabs 0RF 9 days Discontinued prednisone take 4 tablets on days 1-2, take 3 tablets on days 3-4, take 2 tablets on days 5-6, take 1 tablet on days 7-8. Discontinued Reason: Doctor's Order 10 mg PO DIRECTED 20 tabs 0RF
== END 2024-09-03 08:04 | disposition home or self-care (01) ==
LOC: HO.HMCC 07:05
PROVIDERS: PCP Nurse Practitioner Family; Visit Provider Nurse Practitioner Family
DX: M54.42 Lumbago with sciatica, left side (principal)

== ENCOUNTER → 2024-09-03 13:42 | Outpatient (BNV) | payer BC, SELFPAY | PROVIDERS: PCP Nurse Practitioner Family; Visit Provider Radiology Diagnostic Radiology | DX: M43.16 Spondylolisthesis, lumbar region (principal); M47.817 Spondylosis without myelopathy or radiculopathy, lumbosacral region | CPT/HCPCS: 72100 ==

== ENCOUNTER 2024-09-16 08:58 | Outpatient (REF) | payer BC, SELFPAY ==
--- NOTE | ~2024-09-16 | MR_ITS ---
EXAMINATION: MR LUMBAR SPINE WITHOUT CONTRAST CLINICAL INFORMATION: Transitional vertebra. Anterolisthesis L4-5. COMPARISON: Correlated to x-ray dated September 03, 2024. TECHNIQUE: MRI of the lumbar spine was obtained using routine sequences without contrast. FINDINGS: Rudimentary ribs at T12. There is mild/subtle bone marrow STIR signal abnormality involving the right posterior elements of L4-5. Spondylolysis pars interarticularis versus extensive degenerative changes at L4-5 and L5-S1. Grade 1 anterolisthesis L4-5. Multilevel disc desiccation more conspicuous at L4-5. Conus medullaris ends at inferior endplate of T12 with normal signal. T12-L1: No compression upon neural elements. L1-2: Broad-based disc bulging. Facet joint hypertrophy. No compression upon neural elements. L2-3: Broad-based disc bulging. Facet joint hypertrophy. No compression upon neural elements. L3-4: Broad-based disc bulging. Facet joint and ligamentum flavum hypertrophy. Reduced AP diameter of the thecal sac and neuroforamina. L4-5: Grade 1 anterolisthesis. Facet joint and ligamentum flavum hypertrophy. Central spinal canal and to a lesser extent bilateral neuroforamina stenosis. There is slightly compression upon the neural elements of the thecal sac and the left L5 exiting nerve root. L5-S1: Broad-based disc bulging. Facet joint hypertrophy. No central spinal canal or neuroforamina stenosis. No prevertebral compartment hematoma mass or fluid collection. Asymmetric volume loss right psoas muscle.. 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 Electronically signed by: Shyam Crane MD 09/16/2024 01:12 PM EDT
--- OUTSIDE RECORDS SUMMARY | 2024-09-16 09:33 | XMS_ITS | Clinical Summary ---
Author Organization [facility] Address [address] [place] [phone] Phone Care Team Providers Care Sales Attendant Building Materials Name Role Phone Johnny Calero NP Primary [...] Medical Devices Not on file Care Teams Sales Attendant Building Materials Relationship Specialty Start Date End Date Johnny Calero NP [address] [place] [phone] PCP - General Nurse Practitioner 08/08/22 Additional Source Comments The information contained in this document represents components of the legal health record. It is not the complete legal health record.[facility]
== END 2024-09-16 08:59 | disposition home or self-care (01) ==
LOC: HO.MRI 08:58
PROVIDERS: PCP Nurse Practitioner Family; Visit Provider Nurse Practitioner Family
DX: M43.10 Spondylolisthesis, site unspecified (principal); M54.16 Radiculopathy, lumbar region; R93.7 Abnormal findings on diagnostic imaging of other parts of musculoskeletal system
CPT/HCPCS: 72148

== ENCOUNTER → 2024-09-16 09:11 | Outpatient (BNV) | payer BC, SELFPAY | PROVIDERS: PCP Nurse Practitioner Family; Visit Provider Radiology Diagnostic Radiology | DX: M43.16 Spondylolisthesis, lumbar region (principal) | CPT/HCPCS: 72148 ==

== ENCOUNTER 2024-09-26 08:42 | Outpatient (AMB) | payer BC, SELFPAY ==
--- NOTE | 2024-09-26 08:43 | A.SPINEOV_ITS ---
Vital Signs 09/26/24 08:53 Height 5 ft 8 in Weight 217 lb BMI 33.0 Intake Visit Reasons: lumbar radiculopathy Intake Note: Ms. Boothe is here today c/o Low back pain that radiates to the legs. Ecommerce Project Manager Required: No Allergies nickel Allergy (Intermediate, Verified 09/26/24 08:53) Rash neomycin Allergy (Unknown, Verified 09/26/24 08:53) Unknown Physical Exam Vital Signs: BMI result Body Mass Index 33.0 Assessment & Plan Assessment & Plan (1) Lumbar radiculopathy: Code(s): M54.16 - Radiculopathy, lumbar region Category: Medical Plan Dear Johnny, Thank you for referring Mrs Boothe to our office today. She is a very nice 64-year-old female presents to the office today for evaluation of symptoms of bilateral lower extremity discomfort that started sometime in August. Initially it started in her left low back radiating into her left buttock which she describes as sciatic pain. This was very uncomfortable, she did go to urgent Care was treated with some steroids. In the process of this, because of the discomfort with walking, she was putting a lot of pressure on her right side and she subsequently developed pain going down her right leg further distal into the leg with tingling and numbness and sensations of cold. She saw you in the office, was started on dexamethasone and that seems to have helped quite a bit. She remains on Motrin, Tylenol, heating pads etc.. At this point the pain is much more manageable but she wanted to follow-up today as her MRI showed significant findings of spondylolisthesis at L4-5 with central stenosis. PMH: She is a history of atrial fibrillation, she has been stable on diltiazem and follows up with [facility] cardiology. History of depression, anxiety, high cholesterol, sleep apnea, restless legs, osteopenia, appendectomy, urethral sling. Denies any history of pulmonary disease, kidney disease, diabetes, liver disease, major abdominal surgery, back surgery, coagulopathies Social hx: Smokes about 1/3 of a pack a day, drinks wine 3 to 4 times a week and no recreational drugs Medications: Fluoxetine, lamotrigine, gabapentin, diltiazem, omeprazole, atorvastatin, vitamin D3, senna, clobetasol topical cream, albuterol Allergies: Nickel Physical exam: Awake alert oriented no acute distress, strength normal in the lower extremities, patellar reflexes 3+, Achilles reflexes absent Imaging review: Lumbar MRI shows grade 1 spondylolisthesis at L4-5 with bilateral facet arthropathy and moderate central canal stenosis. Although the radiologist does not mention it, to me it looks like there is a small herniation of the disc on the left at L4-5 which may be tucked in the lateral recess. This is seen best on the sagittal T2 imaging. Impression: 64-year-old female presents for bilateral lower extremity symptoms without centralized back pain as described above. She does have left-sided low back pain going into her buttock and right-sided pain radiating down in further into her distal leg with tingling and numbness. I think this can be traced back to the L4-5 spondylolisthesis with what may be or may not a small herniated disc on the left near the L5 nerve. I suspect this area has some degree of instability. I will send her for x-rays for further evaluation with flexion- extension views. However, this pain has only been present now for about 6 weeks and before that she had no previous history of any issues. Therefore, this flare-up may just resolve on its own with some gentle conservative treatment so I am going to send her to physical therapy, and re-evaluate in 8 weeks. If ultimately the symptoms persist or become worse again, we can discuss surgical intervention but right now it is too early. She can continue with the Motrin, Tylenol and other topical things as well to help manage some of the discomfort. Thank you for allowing us to care for your patient. The total time spent with this visit with this patient was 45 minutes reviewing history, physical exam, lumbar imaging review, and implementation of treatment plan or further diagnostic testing Jared Hdz MD,PhD [facility] Orders: Orders PT Evaluation and Treatment Today M54.16 - Radiculopathy, lumbar region XR lumbar spine 4V min Today M54.16 - Radiculopathy, lumbar region Coding Level of Care Code New Pt Level 4 (00873) Diagnoses Lumbar radiculopathy M54.16
--- OUTSIDE RECORDS SUMMARY | 2024-09-26 08:48 | XMS_ITS | Clinical Summary ---
Author Organization [facility] Address [address] [place] [phone] Phone Care Team Providers Care Safety Deposit Clerk Name Role Phone Johnny Calero NP Primary [...] Medical Devices Not on file Care Teams Safety Deposit Clerk Relationship Specialty Start Date End Date Johnny Calero NP [address] [place] [phone] PCP - General Nurse Practitioner 08/08/22 Additional Source Comments The information contained in this document represents components of the legal health record. It is not the complete legal health record.[facility]
[2024-09-26 08:53] VITALS: BMI 33.0
== END 2024-09-26 09:33 | disposition home or self-care (01) ==
LOC: HO.HNS 08:42
PROVIDERS: PCP Nurse Practitioner Family; Visit Provider Physician Assistant
DX: M54.16 Radiculopathy, lumbar region (principal)
CPT/HCPCS: 99204

== ENCOUNTER 2024-09-26 08:42 | Outpatient (REF) | payer BC, SELFPAY ==
--- NOTE | ~2024-09-26 | XR_ITS ---
EXAMINATION: X-ray lumbar spine 4 views. CLINICAL INFORMATION: Radiculopathy, lumbar region. TECHNIQUE: AP and lateral views and neutral flexion and extension position. COMPARISON: September 03, 2024. FINDINGS: Multilevel marginal osteophyte formation and endplate sclerosis and decreased intervertebral disc height throughout the thoracic and lumbar spine. Grade 1 anterolisthesis L4-5 the neutral position which persists during flexion and extension position. Facet joint hypertrophy at L4-5 and L5-S1. No lytic or blastic lesions. XR/XR lumbar spine 4V min IMPRESSION: Multilevel thoracolumbar spondylosis resulting in grade 1 anterolisthesis L4-5 without gross instability. Electronically signed by: Shyam Crane MD 09/29/2024 02:10 PM EDT
--- OUTSIDE RECORDS SUMMARY | 2024-09-26 09:38 | XMS_ITS | Clinical Summary ---
Author Organization [facility] Address [address] [place] [phone] Phone Care Team Providers Care Core Machine Operator Name Role Phone Johnny Calero RAILROAD CAR CLEANER Primary Care Provider + Social History Tobacco Use Types Packs/Day Years Used Date Smoking Tobacco: Never Assessed Sex and Gender Information Value Date Recorded Sex Assigned at Not on file Gender Identity Not on file Sexual Orientation Not on file Plan of Treatment Health Maintenance Due Date Last Done Comments Adult Td,Tdap Booster 1958 LIPID PANEL 1958 DEPRESSION SCREENING 1970 HEPATITIS C SCREENING 1976 MAMMOGRAM 1998 PNEUMOCOCCAL VACCINES (50+ years) (1 of 1 - PCV) 2008 OSTEOPOROSIS SCREENING INITIAL (ONE-TIME) 2023 COVID-19 VACCINE ( - season) 2024 03/29/2022, 06/24/2021, 07/26/2020, Additional history [...] Medical Devices Not on file Care Teams Core Machine Operator Relationship Specialty Start Date End Date Johnny Calero, CLARISSE [address] [place] [phone] PCP - General Nurse Practitioner 08/08/22 Additional Source Comments The information contained in this document represents components of the legal health record. It is not the complete legal health record.[facility]
== END 2024-09-26 08:43 | disposition home or self-care (01) ==
LOC: HO.HOSX 08:42
PROVIDERS: PCP Nurse Practitioner Family; Visit Provider Physician Assistant
DX: M54.16 Radiculopathy, lumbar region (principal)
CPT/HCPCS: 72110

== ENCOUNTER → 2024-09-26 09:35 | Outpatient (BNV) | payer BC, SELFPAY | PROVIDERS: PCP Nurse Practitioner Family; Visit Provider Radiology Diagnostic Radiology | DX: M47.815 Spondylosis without myelopathy or radiculopathy, thoracolumbar region (principal) | CPT/HCPCS: 72110 ==

== ENCOUNTER 2024-11-19 12:47 | Outpatient (AMB) | payer BC, MEDICARE, SELFPAY ==
[2024-11-19 12:52] VITALS: BP 110/66; PULSE 75; RESP 18; TEMP 36.6; O2SAT 98; BMI 32.8
--- NOTE | 2024-11-19 12:52 | MHC.PC.OV ---
Vital Signs 11/19/24 12:52 Height 5 ft 8 in Weight 216 lb BMI 32.8 BP 110/66 Blood Pressure Location Lt brachial Position Sitting Respiration 18 Pulse 75 Pulse Source Pulse Oximeter Temp 97.9 F Temp Source Oral Pulse Oximetry (%) 98 Oxygen Delivery Method Room Air Intake Visit Reasons: PE Intake Note: Pt is here today for PE. Allergies nickel Allergy (Intermediate, Verified 11/19/24 13:54) Rash neomycin Allergy (Unknown, Verified 11/19/24 13:54) Unknown Medication List - Last Reconciled 11/19/24 by Johnny Calero, UTILITY ARBORIST- albuterol sulfate 90 mcg/actuation (Ventolin HFA) 1 inh inhalation QID PRN atorvastatin 10 mg PO BEDTIME 90 days cholecalciferol (vitamin D3) 50 mcg PO DAILY clobetasol 0.05% 1 g topical .twice weekly 90 days diltiazem HCl ER (DILT-XR) 120 mg PO DAILY fluoxetine 40 mg PO QAM gabapentin 100 mg PO DAILY gabapentin 600 mg PO BEDTIME omeprazole 40 mg PO DAILY 90 days sennosides (Natural Senna Laxative) 8.6 mg PO BEDTIME trazodone 50 mg PO BEDTIME PRN Tobacco use date assessed: 11/19/24 Fall risk assessment: No Falls in past year Last assessed Fall Risk: 11/19/24 Dental Screening Dental Screen Date: 11/19/24 Did you have a dental visit in the last 12 months?: Yes Did you have a dental problem in the last 6 months where you did not have access to dental care?: No Was dental information given to patient?: Patient has dentist HPI PE HPI Details History of Present Illness The patient is a 64-year-old female presenting for a physical exam. She has been undergoing physical therapy for sciatica, which is reported to be improving. She recently started yoga, which is positively contributing to her condition. Health Maintenance - Mammogram is up to date - Colon screening is up to date Social History - Exercise: Recently started yoga Review of Systems Physical Exam General: Cooperative, healthy appearing, comfortable, no acute distress and well developed, obese Orientation: Patient oriented x3 Limitations: No limitations Head: Normal to inspection Ears: Hearing grossly normal bilaterally Nose: Normal external nose present Face and sinus: Normal facial exam Eyes: Appearance normal, both eyes and all related structures Neck: Normal visual inspection and Yes full ROM Respiratory: Normal respiratory effort and able to speak in complete sentences. Clear to auscultation bilaterally Cardiovascular: Regular rate and rhythm. Normal S1 and S2 GI: Normal to inspection. Soft to palpation and nontender Skin: No rashes or lesions noted Neuro: Patient oriented x3 Extremities: Normal to inspection, patient is undergoing physical therapy for sciatica, which is improving Results Plan The patient will continue with physical therapy for sciatica, as it is showing improvement. She is encouraged to continue yoga as it contributes positively to her condition. Follow-up is scheduled in six months, and she is reminded to complete her lab work with fasting in the near future. Discussion Notes I discussed with the patient the importance of continuing physical therapy and yoga for her sciatica, which is improving. We also reviewed her upcoming lab work and the need for fasting before the tests. Patient Instructions - Continue physical therapy for sciatica. - Keep practicing yoga regularly. - Schedule and complete lab work with fasting. FORMERLY [facility], [facility]1983 Medical History Sleep apnea treated with continuous positive airway pressure (CPAP) GERD (gastroesophageal reflux disease) Bronchitis Elevated cholesterol History of palpitations Hx of supraventricular tachycardia Osteopenia Plantar fasciitis FERNANDO (obstructive sleep apnea) Vitamin D deficiency Lyme disease Depression Anxiety Surgical History Hx of endoscopy Hx of colonoscopy Hx of appendectomy History of suburethral sling procedure Family History Maternal Aunt Colon cancer Paternal Grandfather Colon cancer Family/Other Colon cancer Brother Substance use disorder Mental health disorder HTN (hypertension) Sister Mental health disorder Mother Mental health disorder History of Almeida's esophagus Father Heart attack CHF (congestive heart failure) Social History Household Members: Spouse Housing: House Alcohol intake: current Patient Tobacco Use Status: Current everyday Tobacco user Tobacco use type: Cigarette Cigarettes Per Day: 5 Years Smoked: 1 year e-Cigarette/Vaping Use: Never Used Second Hand Smoke Exposure: Yes service: Yes Current occupational status: retired Sexual orientation: Straight/Heterosexual Gender identity: Female Cognitive needs: No Hearing needs: No Vision needs: No Female Reproductive History Menstrual Age of Menarche: 14 Questionnaire PHQ-9 Over the last 2 weeks, how often have you been bothered by any of the following problems? 1. Little interest or pleasure in doing things: not at all 2. Feeling down, depressed, or hopeless: not at all 3. Trouble falling or staying asleep, or sleeping too much: not at all 4. Feeling tired or having little energy: not at all 5. Poor appetite or overeating: not at all 6. Feeling bad about yourself - or that you are a failure or have let yourself or your family down: not at all 7. Trouble concentrating on things, such as reading the newspaper or watching television: not at all 8. Moving or speaking so slowly that other people could have noticed. Or the opposite - being so fidgety or restless that you have been moving around a lot more than usual: not at all 9. Thoughts that you would be better off or of hurting yourself in some way: not at all Total score: 0 Depression Screening Interpretation: Negative Depression Screening Done: Yes 79094 - PHQ-9 Billing: Yes Source: Developed by Drs. Baldev Martin, Radha Perez, Luis Antonio Go and colleagues, with an educational faisal from [employer]. Thrive Questionnaire Date Thrive assessed: 11/19/24 I am a: Patient What is your living situation today?: I have a steady place to live Within the past 12 months, did the food you bought not last and you didn't have the money to get more?: Never true Within the past 12 months, did you worry whether your food would run out before you got money to buy more?: Never true Do you have trouble paying for medicines?: No Do you have trouble getting transportation to medical appointments?: No Do you have trouble paying your heating and electricity bill?: No Do you have trouble taking care of your child, family member or friend?: No Do you have trouble with day-to-day activities such as bathing, preparing meals, shopping, managing finances, etc.?: No Are you currently unemployed and looking for a job?: No Are you interested in more education?: No Please select the resources that you would like help with: None Currently or been in a relationship where the following occur: No concerns reported THRIVE Score: 0 AUDIT C Alcohol Use Questionnaire (AUDIT-C) 1. How often do you have a drink containing alcohol?: 2-3 times a week 2. How many drinks containing alcohol do you have on a typical day when you are drinking?: 1 or 2 3. How often do you have six or more drinks on one occasion?: Never Total Score: 3 DAVID-7 AMB Questionnaire DAVID-7 Date DAVID - 7 assessed: 11/19/24 Feeling nervous, anxious, or on edge: 0 = Not at all Not being able to stop or control worryin = Not at all Worrying too much about different things: 0 = Not at all Trouble relaxin = Not at all Being so restless that it is hard to sit still: 0 = Not at all Becoming easily annoyed or irritable: 0 = Not at all Feeling afraid as if something awful might happen: 0 = Not at all Total DAVID-7 score (0-4 normal; 5-9 mild; 10-14 moderate; 15-21 severe): 0 Source: Developed by Drs. Baldev Martin, Radha Perez, Luis Antonio Go and colleagues, with an educational faisal from [employer]. DAVID-7 Assessment Billing DAVID-7 Assessment Tool: DAVID-7 Assessment 41289 Physical exam (Primary Care) Vital Signs: Last Vital Signs Temp 97.9 F 11/19/24 12:52 Pulse 75 11/19/24 12:52 Resp 18 11/19/24 12:52 BP 110/66 11/19/24 12:52 Pulse Ox 98 11/19/24 12:52 Oxygen Delivery Method Room Air 11/19/24 12:52 BMI result Body Mass Index 32.8 Tobacco/Smoking Status: Tobacco use Status Tobacco use date assessed 11/19/24 11/19/24 12:58 Patient Tobacco Use Status Current everyday Tobacco 11/19/24 12:58 Tobacco use type Cigarette 11/19/24 12:58 e-Cigarette/Vaping Use Never Used 11/19/24 12:58 PHQ-9: PHQ-9 Score PHQ-9: Total score 0 11/19/24 12:58 Depression Screening Interpretation: Negative Thrive Assessment: Date of Thrive Assessment Date Thrive assessed 11/19/24 11/19/24 12:58 Currently or been in a relationship where the following occur: No concerns reported Coding Level of Care Code Est Pt Prev Care >65y(57860) Diagnoses Physical exam Z00.00 Postmenopausal Z78.0 Additional Codes DAVID-7 Assessment Billing - DAVID-7 Assessment Tool: DAVID-7 Assessment 70122 ([id number]) PHQ-9 - 90260 - PHQ-9 Billing: Yes ([id number]) Assessment & Plan Assessment & Plan (1) Physical exam: Code(s): Z00.00 - Encounter for general adult medical examination without abnormal findings Category: Medical (2) Postmenopausal: Code(s): Z78.0 - Asymptomatic menopausal state Category: Medical Plan . Orders: Orders Complete Blood Count Auto Diff Today Z00.00 - Encounter for general adult medical examination without abnormal findings Comprehensive [place]. Panel Fast Today Z00.00 - Encounter for general adult medical examination without abnormal findings TSH reflex Free T4 Today Z00.00 - Encounter for general adult medical examination without abnormal findings UA CC w/rflx Micro + Cult Today Z00.00 - Encounter for general adult medical examination without abnormal findings Vitamin D 25-OH Total Today Z78.0 - Asymptomatic menopausal state Lipid Panel Today Z00.00 - Encounter for general adult medical examination without abnormal findings
== END 2024-11-19 14:02 | disposition home or self-care (01) ==
LOC: HO.HMCC 12:47
PROVIDERS: PCP Nurse Practitioner Family; Visit Provider Nurse Practitioner Family
DX: Z00.00 Encounter for general adult medical examination without abnormal findings (principal); Z78.0 Asymptomatic menopausal state

== ENCOUNTER → 2024-11-19 12:47 | Outpatient (BNVA) | payer BC, MEDICARE, SELFPAY | PROVIDERS: PCP Nurse Practitioner Family; Visit Provider Nurse Practitioner Family | DX: Z00.00 Encounter for general adult medical examination without abnormal findings (principal); M54.30 Sciatica, unspecified side; Z78.0 Asymptomatic menopausal state | CPT/HCPCS: 96127 ==

== ENCOUNTER 2024-11-20 15:00 | Outpatient (RCR) | payer BC, MEDICARE, SELFPAY ==
--- NOTE | 2024-10-07 09:23 | MHC.PT.EP ---
[facility] [place] [facility] [place] [facility] [place] [facility] [address] Malick Mendoza [address] [phone] F: [phone] F: [phone] F: [phone] F: [phone] Physical Therapy Plan of Care Date of Evaluation: 10/07/24 Date of Surgery: Diagnosis: This is a 64 yo female presenting to skilled PT with a script for radiculopathy, lumbar region. Assessment: This is a 64 yo female presenting to skilled PT with a script for radiculopathy, lumbar region. Patient is being followed by [facility] spine clinic. She is here today for evaluation of symptoms of bilateral lower extremity discomfort that started sometime in August. Initially it started in her left low back radiating into her left buttock which she described as sciatic pain. This was very uncomfortable, she did go to urgent Care and was treated with some steroids (prednisone). In the process of this, because of the discomfort with walking, she was putting a lot of pressure on her right side and she subsequently developed pain going down her right lateral leg further distal into the leg with tingling and numbness and sensations of cold. She has since been started on dexamethasone and that seemed to have helped. She remains also on Motrin, Tylenol, heating pads for pain relief assistance. She also recently had an MRI which was significant findings of spondylolisthesis at L4-5 with central stenosis. Per the last occupational safety specialist note: However, this pain has only been present now for about 6 weeks and before that she had no previous history of any issues. Therefore, this flare-up may just resolve on its own with some gentle conservative treatment so I am going to send her to physical therapy, and re-evaluate in 8 weeks. If ultimately the symptoms persist or become worse again, we can discuss surgical intervention but right now it is too early. Assessment reveals pain that ranges from up to a 6/10 at the worst. Patient demos decreased lumbar ROM, strength of B LE's, core and back, TTP at lumbar surrounding soft tissues with + SIJ tests with palpation (see lumbar) and impaired posture with forward head, forward trunk and rounded shoulders as well as gait and balance effected by pain. Based on functional limitations, impaired QOL and pain tolerance patient is a good candidate for skilled PT 2x/wk for 4wks. Frequency and Duration: The patient will be seen 2x/wk for 4wks Short Term Goals: Pt will demonstrate improved postural awareness and understanding of core engagement with supine and standing tasks without cues throughout session to improve overall back safety in 2 weeks. Pt will demonstrate centralization of sx in 2 weeks. Pt will continue to reinforce precautions, sitting, standing and ADL modifications with proper body mechanics in 2 wks. Matrix Drier Tender Goals: Pt will demonstrate improved outcome measure by 5 points in 4 weeks for improved functional mobility. Pt will demonstrate ability to bend and lift WNL min to no pain for household tasks in 4 wks. Pt will be I in HEP and compliant in 4wks Treatment Plan: Modalities to reduce pain, spasms and effusion. Manual therapy to restore motion and function. Therapeutic exercise to improve strength and flexibility. Neuromuscular re-education for posture and balance. Therapeutic activities to return to functional activities of daily living. Electronically signed by: Isabel Cortés PT Please sign and return to therapist. Thank you for your referral.
--- NOTE | 2024-12-19 09:43 | MHC.PT.DC ---
[facility] [place] Office [place] [facility] [address] Malick Mendoza [address] [phone] F: [phone] F: [phone] F: [phone] F: [phone] Physical Therapy Discharge Report Diagnosis: This is a 64 yo female presenting to skilled PT with a script for radiculopathy, lumbar region. Date of Surgery: Date of Evaluation: 10/07/24 Date of Discharge: 12/19/24 Treatments to Date: 13 Cancellations to Date: 0 No Shows to Date: 0 Discharge Status: Achieved Goals Improved Function Independent with HEP Recommend MD Follow-up Discharge Summary: 11/20: Patient has been to 13 sessions of PT. She has improved her function, ROM and strength but has variable radiating symptoms still into her feet. I recommended she speak with referring provider about this at her follow up next week. At this time she has a good HEP, has been doing exercise classes and access to swimming. Skilled PT is no longer indicated this time, DC to HEP. Electronically signed by: Isabel Cortés PT Please sign and return to therapist. Thank you for your referral.
== END 2024-12-19 09:43 | disposition home or self-care (01) ==
LOC: HO.PTCHIC 15:00
PROVIDERS: PCP Nurse Practitioner Family; Visit Provider Physician Assistant
DX: M54.42 Lumbago with sciatica, left side (principal); M54.16 Radiculopathy, lumbar region
CPT/HCPCS: 97110; 97140; 97162

== ENCOUNTER 2024-11-28 11:13 | Outpatient (AMB) | payer BC, SELFPAY ==
--- NOTE | 2024-11-28 11:57 | A.SPINEOV_ITS ---
Intake Visit Reasons: 2 month follow up Intake Note: Ms. Boothe is here today for her 2 month F/u. Armhole Raiser Lockstitch Required: No Allergies nickel Allergy (Intermediate, Verified 11/28/24 11:59) Rash neomycin Allergy (Unknown, Verified 11/28/24 11:59) Unknown Assessment & Plan Assessment & Plan (1) Acute left-sided low back pain with sciatica: Code(s): M54.40 - Lumbago with sciatica, unspecified side Category: Medical Qualifiers: Sciatica laterality: sciatica of left side Qualified Code(s): M54.42 - Lumbago with sciatica, left side Plan Mrs Dumont came back in follow-up. The physical therapy seems to be working quite well. She is back to yoga and a lot of the lower extremity symptoms are improving. Therefore, I think we should just put a pause on any talk of surgery as she seems to be recovering nicely. She understands that if the symptoms come back and things progress, she should come back and we can rediscuss possible surgery but for now I think she is healing up. I sent a script for naproxen to her pharmacy for her. Total amount of time spent in this visit was 20 minutes in discussion of symptoms, lumbar MRI imaging results and subsequent plan of care Jared Hdz MD,PhD [facility] Medications: New naproxen 500 mg PO BID PRN 60 tabs 11RF pain Coding Level of Care Code Est Pt Level 3 (98571) Diagnoses Acute left-sided low back pain with left-sided sciatica M54.42 Sciatica laterality: sciatica of left side
== END 2024-11-28 12:52 | disposition home or self-care (01) ==
LOC: HO.HNS 11:14
PROVIDERS: PCP Nurse Practitioner Family; Visit Provider Physician Assistant
DX: M54.42 Lumbago with sciatica, left side (principal)
CPT/HCPCS: 99213

== ENCOUNTER 2024-12-17 09:44 | Outpatient (AMB) | payer BC, SELFPAY ==
--- NOTE | 2024-12-17 10:23 | MHC.OFFVIS ---
Vital Signs 12/17/24 10:37 Height 5 ft 8 in BP 132/60 Intake Visit Reasons: Skin check, Lichen sclerosus of female genitalia Intake Note: also c/o symptoms of UTI, CCUA obtained Hand Crocheter Required: No Complaint Evaluation Officer: Complaint Evaluation Officer Present Allergies nickel Allergy (Intermediate, Verified 12/17/24 10:25) Rash neomycin Allergy (Unknown, Verified 12/17/24 10:25) Unknown Medication List - Last Reconciled 12/17/24 by Caryn Barnett LPN albuterol sulfate 90 mcg/actuation (Ventolin HFA) 1 inh inhalation QID PRN atorvastatin 10 mg PO BEDTIME 90 days cholecalciferol (vitamin D3) 50 mcg PO DAILY clobetasol 0.05% 1 g topical .twice weekly 90 days diltiazem HCl ER (DILT-XR) 120 mg PO DAILY fluoxetine 40 mg PO QAM gabapentin 100 mg PO DAILY gabapentin 600 mg PO BEDTIME naproxen 500 mg PO BID PRN omeprazole 40 mg PO DAILY 90 days sennosides (Natural Senna Laxative) 8.6 mg PO BEDTIME trazodone 50 mg PO BEDTIME PRN Is last menstrual period known: No Post menopausal: No HPI Comments Details: Patient is here today for a follow up on her lichen sclerosus therapy. She currently is concerned over UTI symptoms-frequency and burning for the last few days. Not currently intimate with the due to his medical issues. [facility] Medical History (Updated 12/17/24 @ 10:52 by Caryn Barnett LPN) Sleep apnea treated with continuous positive airway pressure (CPAP) GERD (gastroesophageal reflux disease) Bronchitis Elevated cholesterol History of palpitations Hx of supraventricular tachycardia Osteopenia Plantar fasciitis FERNANDO (obstructive sleep apnea) Vitamin D deficiency Lyme disease Depression Anxiety Surgical History Hx of endoscopy Hx of colonoscopy Hx of appendectomy History of suburethral sling procedure Family History Maternal Aunt Colon cancer Paternal Grandfather Colon cancer Family/Other Colon cancer Brother Substance use disorder Mental health disorder HTN (hypertension) Sister Mental health disorder Mother Mental health disorder History of Almeida's esophagus Father Heart attack CHF (congestive heart failure) Social History Household Members: Spouse Housing: House Alcohol intake: current Patient Tobacco Use Status: Current everyday Tobacco user Tobacco use type: Cigarette Cigarettes Per Day: 5 Years Smoked: 1 year e-Cigarette/Vaping Use: Never Used Second Hand Smoke Exposure: Yes service: Yes Current occupational status: retired Sexual orientation: Straight/Heterosexual Gender identity: Female Cognitive needs: No Hearing needs: No Vision needs: No Female Reproductive History Menstrual Age of Menarche: 14 Menopause type: natural Total pregnancies: 0 History of STI: No Date of Mammogram: 02/05/24 History of abnormal mammogram: No Date of last Bone Density Screenin02/05/24 (Osteopenia) Review of Systems Const All systems reviewed & are unremarkable except as noted in HPI and below Endo Reports no additional complaints Physical Exam Vital Signs: Last Vital Signs BP 132/60 12/17/24 10:37 Const General: cooperative, healthy appearing and no acute distress Other: external inspection only: scatterrred hypoigmentation of vulva from mons, labia wolfgang, no lesions, thickening, parchment, erosions or fissures. Psych Appearance: well kempt Attitude: cooperative Thought process: Normal thought process present Results AMB Urinalysis Automated WC UR Glucose Negative Last Edit by Caryn Barnett LPN on 12/17/24 10:49 UR Ketone Negative Last Edit by Caryn Barnett LPN on 12/17/24 10:49 UR Specific Kimper 1.015 Last Edit by Caryn Barnett LPN on 12/17/24 10:49 UR Blood Small Last Edit by Caryn Barnett LPN on 12/17/24 10:49 UR Ph 5.5 Last Edit by Caryn Barnett LPN on 12/17/24 10:49 UR Protein Negative Last Edit by Caryn Barnett LPN on 12/17/24 10:49 UR Nitrite Negative Last Edit by Caryn Barnett LPN on 12/17/24 10:49 UR Leukocytes Moderate Last Edit by Caryn Barnett LPN on 12/17/24 10:49 Results Reviewed Results Reviewed: Laboratory Last Values Urine pH (Clinic) 5.5 12/17/24 10:47 Specific Kimper (Clinic) 1.015 12/17/24 10:47 Ur Protein (Clinic) Negative 12/17/24 10:47 Ur Ketones (Clinic) Negative 12/17/24 10:47 Urine Blood (Clinic) Small 12/17/24 10:47 Urine Nitrite Negative 12/17/24 10:47 Leukocyte Esterase (Clinic) Moderate 12/17/24 10:47 Urine Glucose (Clinic) Negative 12/17/24 10:47 Assessment & Plan Assessment & Plan (1) Lichen sclerosus of female genitalia: Code(s): N90.4 - Leukoplakia of vulva Plan: Continue with med on prn basis. Recheck 02/2025 at . The patient expressed understanding and agreement with the plan of care. All of her questions and concerns were addressed to the best of my ability. (2) Urinary frequency: Code(s): R35.0 - Frequency of micturition Plan Discussed; Increase hydration, mostly water. Take as directed and complete any medications that may be ordered. Report to the ED immediately if any fever >100.4, flu like symptoms, lightheadedness, dizziness, significant flank pain. The patient expressed understanding and agreement with the plan of care. All of her questions and concerns were addressed to the best of my ability. This note is constructed using voice recognition software. While every effort has been made to ensure accuracy, intermission coordinator errors may have been included. Orders: Orders Urine Culture Today R30.0 - Dysuria Medications: New nitrofurantoin monohyd/m-cryst 100 mg (Macrobid) must administer with a meal/food 100 mg PO BID 10 caps 0RF UTI 5 days Coding Level of Care Code Est Pt Level 3 (12661) Diagnoses Lichen sclerosus of female genitalia N90.4 Urinary frequency R35.0
[2024-12-17 10:37] VITALS: BP 132/60
== END 2024-12-17 11:58 | disposition home or self-care (01) ==
LOC: HO.HWS 09:44
PROVIDERS: PCP Nurse Practitioner Family; Visit Provider Advanced Practice Midwife
DX: N90.4 Leukoplakia of vulva (principal); R35.0 Frequency of micturition
CPT/HCPCS: 99213

== ENCOUNTER 2024-12-17 09:44 | Outpatient (REF) | payer BC, SELFPAY | END 2024-12-17 09:45 | disposition home or self-care (01) | LOC: HO.LNP 09:44 | PROVIDERS: PCP Nurse Practitioner Family; Visit Provider Advanced Practice Midwife | DX: N90.4 Leukoplakia of vulva (principal); R35.0 Frequency of micturition; R30.0 Dysuria; Z79.899 Other long term (current) drug therapy | CPT/HCPCS: 87086; 87088; 87186 ==

== ENCOUNTER 2025-02-10 09:34 | Outpatient (REF) | payer BC, SELFPAY ==
--- OUTSIDE RECORDS SUMMARY | 2025-02-10 11:04 | XMS_ITS | Clinical Summary ---
Author Organization [facility] Address [address] [place] [id number] Phone Care Team Providers Care Cable Cutter And Swager Name Role Phone Johnny Calero FILAMENT MAKER Primary Care Provider + Social History Tobacco Use Types Packs/Day Years Used Date Smoking Tobacco: Never Assessed Comments Unknown Sex and Gender Information Value Date Recorded Sex Assigned at Not on file Legal Sex Female 10:03 AM EST Gender Identity Not on file Sexual Orientation [...] age to complete this topic MENINGOCOCCAL VACCINES (B) Aged Out N o longer eligible based on patient's age to complete this topic Medical Devices Not on file Care Teams Cable Cutter And Swager Relationship Specialty Start Date End Date Johnny Calero, CLARISSE [facility] [place] [address] PCP - General Nurse Practitioner 08/08/22 Additional Source Comments The information contained in this document represents components of the legal health record. It is not the complete legal health record.[facility]
== END 2025-02-10 09:35 | disposition home or self-care (01) ==
LOC: HO.MAMMO 09:34
PROVIDERS: PCP Nurse Practitioner Family; Visit Provider Nurse Practitioner Family
DX: Z12.31 Encounter for screening mammogram for malignant neoplasm of breast (principal)
CPT/HCPCS: 77063; 77067

== ENCOUNTER → 2025-02-10 09:45 | Outpatient (BNV) | payer BC, SELFPAY | PROVIDERS: PCP Nurse Practitioner Family; Visit Provider Internal Medicine | DX: Z12.31 Encounter for screening mammogram for malignant neoplasm of breast (principal) | CPT/HCPCS: 77063; 77067 ==

== ENCOUNTER 2025-05-21 09:10 | Outpatient (REF) | payer BC, SELFPAY ==
[2025-05-21 10:11] LABS: Appearance Urine Clear; Glucose Urine UA Negative (Negative); PH 5.5 (5.0-9.0); Specific Gravity - Urine 1.015 (1.005-1.025); UMIC TRIGGER UACC YES
--- OUTSIDE RECORDS SUMMARY | 2025-05-21 10:20 | XMS_ITS | Clinical Summary ---
Author Organization [facility] Address [address] [place] [phone] Phone Care Team Providers Care Finishing And Shipping Supervisor Name Role Phone Johnny Calero NP Primary [...] SCREENING INITIAL (ONE-TIME) 2023 INFLUENZA VACCINE (#1) 2025 , 06/24/2021, 04/09/2019, Additional history exists COVID-19 VACCINE ( season) 2025 03/29/2022, 06/24/2021, 07/26/2020, Additional history exists RSV [...] Medical Devices Not on file Care Teams Finishing And Shipping Supervisor Relationship Specialty Start Date End Date Johnny Calero NP [address] [place] [address] [place] [address] PCP - General Nurse Practitioner 08/08/22 Additional Source Comments The information contained in this document represents components of the legal health record. It is not the complete legal health record.[facility]
[2025-05-21 10:25] LABS: MANUAL DIFF FLAG NO
[2025-05-21 10:28] LABS: UACC Culture Trigger YES
[2025-05-21 10:43] LABS: Hematocrit 40.7 % (37.0-47.0); Hemoglobin 13.5 g/dl (12.0-16.0); Imm Gran Abs Auto 0.03 X10*3/uL (0.00-0.03); Imm Gran Pct Auto 0.4 % (0.0-0.4); Lymphocytes Absolute Auto 1.5 X10*3/uL (1.2-4.9); Mean Corpuscular HGB Conc 33.2 g/dl (31.0-35.0); Mean Corpuscular Hemoglobin 30.2 pg (27.0-33.0); Mean Corpuscular Volume 91.1 fL (80.0-98.0); NRBC Abs Auto 0.000 X10*3/uL (0.0-0.012); NRBC Pct Auto 0.0 /100WBC (0.0-0.2); Platelet Count 298 X10*3/uL (160-400); Red Blood Count 4.47 X10*6/uL (4.20-5.50); White Blood Count 7.3 X10*3/uL (4.8-10.8)
[2025-05-21 11:14] LABS: Alanine Aminotransferase 17 U/L (0-31); Albumin Level 3.9 g/dL (3.5-5.0); Alkaline Phosphatase 78 U/L (39-117); Anion Gap 11 (12-20); Aspartate Amino Transferase 22 U/L (5-31); Blood Urea Nitrogen 15 mg/dL (9-16); Calcium 8.9 mg/dL (8.4-10.2); Carbon Dioxide 25 mmol/L (22-29); Chloride 107 mmol/L (96-108); Cholesterol 150 mg/dL (<200); Estimated Glomerular Filt Rate > 60; HDL Cholesterol 53 mg/dL (>40); Potassium 4.1 mmol/L (3.3-5.1); Sodium 139 mmol/L (135-145); Total Protein 7.0 g/dL (6.5-8.0); Triglycerides 63 mg/dL (<150)
== END 2025-05-21 09:11 | disposition home or self-care (01) ==
LOC: HO.HMGCLDS 09:10
PROVIDERS: PCP Nurse Practitioner Family; Visit Provider Nurse Practitioner Family
DX: Z00.00 Encounter for general adult medical examination without abnormal findings (principal); Z78.0 Asymptomatic menopausal state; Z13.29 Encounter for screening for other suspected endocrine disorder; Z13.21 Encounter for screening for nutritional disorder; Z13.6 Encounter for screening for cardiovascular disorders
CPT/HCPCS: 36415; 80053; 80061; 81001; 82306; 84443; 85025; 87086

== ENCOUNTER 2025-05-26 08:47 | Outpatient (AMB) | payer BC, MEDICARE, SELFPAY ==
--- NOTE | 2025-05-26 08:49 | A.OFFPC_ITS ---
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 Required: No Accompanied by: Self / Same As Patient Allergies nickel Allergy (Intermediate, Verified 05/26/25 09:17) Rash neomycin Allergy (Unknown, Verified 05/26/25 09:17) Unknown Medication List - Last Reconciled 05/26/25 by Johnny Calero OFFICE CLERK- albuterol sulfate 90 mcg/actuation (Ventolin HFA) 1 inh inhalation QID PRN atorvastatin 10 mg PO BEDTIME 90 days cholecalciferol (vitamin D3) 50 mcg PO DAILY diltiazem HCl ER (DILT-XR) 120 mg PO DAILY fluoxetine 40 mg PO QAM gabapentin 100 mg PO DAILY gabapentin 600 mg PO BEDTIME naproxen 500 mg PO BID PRN omeprazole 40 mg PO DAILY 90 days sennosides (Natural Senna Laxative) 8.6 mg PO BEDTIME trazodone 50 mg PO BEDTIME PRN Tobacco use date assessed: 11/19/24 Fall risk assessment: 2 + Falls in past year Last assessed Fall Risk: 05/26/25 Dental Screening Dental Screen Date: 11/19/24 HPI 6m follow up HPI Details Chief Complaint The patient presents for a follow-up visit regarding her lower back pain with radiculopathy. History of Present Illness The patient is a 64 year old female presenting for a follow-up on her lower back pain with radiculopathy, which she reports is now significantly improved. A previous MRI from September showed grade 1 anteriorlisthesis on a degenerative basis, spondylosis, and defects of the pars interarticularis, which resulted in central spinal canal stenosis compressing elements of the thecal sac and the left L5 exiting nerve root. Following her diagnosis, she was seen by a spine team and underwent physical therapy, which she found to be tremendously helpful. The possibility of back surgery was discussed, contingent on her response to physical therapy. Regarding her history of anxiety and depression, the patient is reportedly doing quite well and denies any suicidal or homicidal ideation. She engages in regular sessions with a therapist. Social History - Exercise: The patient plans to restart yoga. Health Maintenance - The patient is scheduled for a physica l examination in 6 months. Review of Systems - Musculoskeletal: Reports improving low er back pain and radiculopathy. - Psychiatric: Denies suicidal or homici roosevelt ideation. Physical Exam General: Cooperative, healthy appearing, comfortable, no acute distress and well developed, obese Orientation: Patient oriented x3 Limitations: No limitations Head: Normal to inspection Ears: Hearing grossly normal bilaterally Nose: Normal external nose present Face and sinus: Normal facial exam Eyes: Appearance normal, both eyes and all related structures Neck: Normal visual inspection and Yes full ROM Respiratory: Normal respiratory effort and able to speak in complete sentences. Clear to auscultation bilaterally Cardiovascular: Regular rate and rhythm. Normal S1 and S2 GI: Normal to inspection. Soft to palpation and nontender Skin: No rashes or lesions noted Neuro: Patient oriented x3 Extremities: Normal to inspection Results - Labs: Recent labs were completed and n oted to be impressive. - MRI (September): Showed grade 1 anterior l isthesis on a degenerative basis, spondylosis, and pars interarticularis defect, resulting in central spinal canal stenosis compressing the thecal sac and the left L5 exiting nerve root. Plan 1. Lower Back Pain With Radiculopathy The patient's lower back pain and radiculopathy have improved significantly with physical therapy. The plan is to continue with conservative management. She will restart yoga. A follow-up is scheduled in 6 months for a physical. 2. Anxiety And Depression The patient is doing well with her anxiety and depression. She will continue with her regular therapist sessions. Discussion Notes I reviewed the patient's lower back pain with radiculopathy, noting that it has significantly improved. We discussed her previous MRI from September, which showed grade 1 anterior listhesis, spondylosis, and central spinal canal stenosis. She reported tremendous benefit from physical therapy, and she is excited to restart yoga. We noted that things are progressing in the right direction, and while back surgery remains a possibility depending on future progress, it is not currently indicated. We also checked in on her anxiety and depression, and she is doing quite well while seeing a therapist regularly. Her recent labs were impressive. I will see her back for a physical in 6 months. Patient Instructions - Your lower back pain has improved a lo t with physical therapy, which is great news. - Please continue with your exercises an d restart yoga as you planned. - Continue to see your therapist regular ly for your mental well-being. - Please schedule a follow-up appointmen t for a physical in about 6 months. [facility] Medical History Sleep apnea treated with continuous positive airway pressure (CPAP) GERD (gastroesophageal reflux disease) Bronchitis Elevated cholesterol History of palpitations Hx of supraventricular tachycardia Osteopenia Plantar fasciitis FERNANDO (obstructive sleep apnea) Vitamin D deficiency Lyme disease Depression Anxiety Surgical History Hx of endoscopy Hx of colonoscopy Hx of appendectomy History of suburethral sling procedure Family History Maternal Aunt Colon cancer Paternal Grandfather Colon cancer Family/Other Colon cancer Brother Substance use disorder Mental health disorder HTN (hypertension) Sister Mental health disorder Mother Mental health disorder History of Almeida's esophagus Father Heart attack CHF (congestive heart failure) Social History Household Members: Spouse Housing: House Alcohol intake: current Patient Tobacco Use Status: Current everyday Tobacco user Tobacco use type: Cigarette Cigarettes Per Day: 5 Years Smoked: 1 year e-Cigarette/Vaping Use: Never Used Second Hand Smoke Exposure: Yes service: Yes Current occupational status: retired Sexual orientation: Straight/Heterosexual Gender identity: Female Cognitive needs: No Hearing needs: No Vision needs: No Female Reproductive History Menstrual Age of Menarche: 14 Questionnaire Thrive Questionnaire Date Thrive assessed: 11/12/24 I am a: Patient What is your living situation today?: I have a steady place to live Within the past 12 months, did the food you bought not last and you didn't have the money to get more?: Never true Within the past 12 months, did you worry whether your food would run out before you got money to buy more?: Never true Do you have trouble paying for medicines?: No Do you have trouble getting transportation to medical appointments?: No Do you have trouble paying your heating and electricity bill?: No Do you have trouble taking care of your child, family member or friend?: No Do you have trouble with day-to-day activities such as bathing, preparing meals, shopping, managing finances, etc.?: No Are you currently unemployed and looking for a job?: No Are you interested in more education?: No Please select the resources that you would like help with: None Currently or been in a relationship where the following occur: No concerns reported THRIVE Score: 0 DAVID-7 AMB Questionnaire DAVID-7 Date DAVID - 7 assessed: 11/19/24 Source: Developed by Drs. Baldev Martin, Radha Perez, Luis Antonio Go and colleagues, with an educational faisal from [employer]. Physical exam (Primary Care) Vital Signs: Last Vital Signs Pulse 74 05/26/25 08:51 BP 118/62 05/26/25 08:51 Pulse Ox 97 05/26/25 08:51 BMI result Body Mass Index 32.7 Tobacco/Smoking Status: Tobacco use Status Tobacco use date assessed 11/19/24 05/26/25 08:51 Patient Tobacco Use Status Current everyday Tobacco 05/26/25 08:51 Tobacco use type Cigarette 05/26/25 08:51 e-Cigarette/Vaping Use Never Used 05/26/25 08:51 Thrive Assessment: Date of Thrive Assessment Date Thrive assessed 11/12/24 05/26/25 08:51 Currently or been in a relationship where the following occur: No concerns reported Coding Level of Care Code Est Pt Level 3 (15468) Diagnoses Anterolisthesis M43.10 Lumbar radiculopathy M54.16 Nerve root compression G54.9 Anxiety F41.9 Depression F32.9 Assessment & Plan Assessment & Plan (1) Anterolisthesis: Code(s): M43.10 - Spondylolisthesis, site unspecified Category: Medical (2) Lumbar radiculopathy: Code(s): M54.16 - Radiculopathy, lumbar region Category: Medical (3) Nerve root compression: Code(s): G54.9 - Nerve root and plexus disorder, unspecified Category: Medical (4) Anxiety: Code(s): F41.9 - Anxiety disorder, unspecified Category: Medical (5) Depression: Code(s): F32.9 - Major depressive disorder, single episode, unspecified Category: Medical Plan .
[2025-05-26 08:51] VITALS: BP 118/62; PULSE 74; O2SAT 97; BMI 32.7
--- OUTSIDE RECORDS SUMMARY | 2025-05-26 09:09 | XMS_ITS | Clinical Summary ---
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 It is not the complete legal health record.[facility]
== END 2025-05-26 09:29 | disposition home or self-care (01) ==
LOC: HO.HMCC 08:48
PROVIDERS: PCP Nurse Practitioner Family; Visit Provider Nurse Practitioner Family
DX: M43.10 Spondylolisthesis, site unspecified (principal); M54.16 Radiculopathy, lumbar region; G54.9 Nerve root and plexus disorder, unspecified; F41.9 Anxiety disorder, unspecified; F32.9 Major depressive disorder, single episode, unspecified